=== PATIENT | female | born 1980 | race Caucasian/White ===

== ENCOUNTER 2016-09-27 15:30 | Emergency (ER) | payer MEDICAID ==
[2016-09-27 15:53] VITALS: BP 149/101; PULSE 71; RESP 18; TEMP 98.2
--- NOTE | 2016-09-27 17:06 | ED ---
Back Pain HPI - General Chief Complaint: Back Pain/Injury Stated Complaint: Back Pain Time Seen by Provider: 09/27/16 16:23 Source: patient Limitations: no limitations - History of Present Illness MD Complaint: back pain (Lumbosacral) Onset/Timin -: week(s) Similar Symptoms Previously: Yes Place: home Radiation: none Severity: moderate Severity scale (1-10): 7 Quality: sharp, aching Consistency: constant Improves With: movement Worsens With: immobilization Context: other (Patient states she was going from a standing to a sitting position bending over when she felt her back "pop") Associated Symptoms: denies other symptoms Treatments Prior to Arrival: NSAIDS, acetaminophen - Related Data Home Medications Medication Instructions Recorded Confirmed Acetaminophen [Tylenol Extra 500 - 1,000 mg PO Q8H PRN 09/27/16 09/27/16 Strength] [place] Patch 1 patch TOPICAL DAILY PRN 09/27/16 09/27/16 Ibuprofen [Motrin] 800 mg PO Q6HR PRN 09/27/16 09/27/16 Previous Rx's Medication Instructions Recorded HYDROcodone/APAP 5-325MG [[place] 1 tab PO Q6H PRN #12 tab 09/27/16 5-325] Orphenadrine [Norflex] 100 mg PO Q12H #6 tablet.er 09/27/16 Allergies Allergy/AdvReac Type Severity Reaction Status Date / Time No Known Allergies Allergy Verified 09/27/16 16:15 Review of Systems ROS Statement: Those systems with pertinent positive or pertinent negative responses have been documented in the HPI. ROS Other: All systems not noted in ROS Statement are negative. Past Medical History Past Medical History: No Reported History History of Any Multi-Drug Resistant Organisms: None Reported Past Surgical History: Section, Cholecystectomy, Heart Catheterization Past Psychological History: No Psychological Hx Reported Smoking Status: Never smoker Past Alcohol Use History: None Reported Past Drug Use History: None Reported General Exam Limitations: no limitations General appearance: alert, in no apparent distress Head exam: Present: atraumatic, normocephalic, normal inspection Eye exam: Present: normal appearance ENT exam: Present: mucous membranes moist, normal external ear exam Neck exam: Present: normal inspection, full ROM. Absent: tenderness, lymphadenopathy Respiratory exam: Present: normal lung sounds bilaterally, rhonchi. Absent: respiratory distress, wheezes, rales Cardiovascular Exam: Present: regular rate, normal rhythm, normal heart sounds. Absent: systolic murmur GI/Abdominal exam: Present: soft, normal bowel sounds. Absent: tenderness Extremities exam: Present: normal inspection, full ROM. Absent: tenderness, normal capillary refill, pedal edema, calf tenderness Back exam: Present: normal inspection, full ROM, vertebral tenderness (Lumbar region). Absent: CVA tenderness (R), CVA tenderness (L), muscle spasm, paraspinal tenderness, rash noted Expanded Back exam: Absent: saddle anesthesia Neurological exam: Present: alert, oriented X3, normal gait, other (No focal deficits noted) Psychiatric exam: Present: normal affect, normal mood Skin exam: Present: warm, dry, intact, normal color Course Vital Signs 09/27/16 15:50 Temperature 98.2 F Pulse Rate 71 Respiratory 18 Rate Blood Pressure 149/101 O2 Sat by Pulse 98 Oximetry Medical Decision Making - Medical Decision Making Lumbar sacral back sprain. X-ray with evidence of mild multilevel degenerative disc disease; mild facet arthropathic lower lumbar spine; possible 5 mm gallstone or right renal calculus. - Radiology Data Radiology results: report reviewed X-ray lumbosacral spine: Nonspecific 5 mm density right mid abdomen could represent a gallstone or renal calculus. Gentle levoconvex curvature of the lumbar spine with 5 lumbar type vertebral bodies and preserved alignment. Mild multilevel due to disc disease with disc space narrowing greatest at L5-S1 but also within the lower thoracic spine as well. Mild facet arthropathic the lower lumbar spine. Vertebral body heights are preserved. Impression: 1. Mild multilevel degenerative disc disease. Mild facet arthropathic lower lumbar spine. 2. No vertebral compression collapse or malalignment. Gentle levoconvex curvature which could be positional, due to muscle spasm, or underlying scoliosis. 3. Possible 5 mm gallstone or right renal calculus. Disposition Clinical Impression: Strain of lumbar region Disposition: HOME SELF-CARE Condition: Good Instructions: Acute Low Back Pain (ED) Additional Instructions: Continue Tylenol or Motrin for pain. Continue [place] for moderate or severe pain. Continue Norflex for back spasms twice daily as needed. Follow-up with primary care physician as directed. Follow-up with orthopedic service as needed. Please return to the emergency department with new or worsening symptoms. Prescriptions: HYDROcodone/APAP 5-325MG [[place] 5-325] 1 tab PO Q6H PRN #12 tab PRN Reason: Pain Orphenadrine [Norflex] 100 mg PO Q12H #6 tablet.er Referrals: Sanam Gray MD [Primary Care Provider] - 1-2 days Lamar Kirkland DO [Doctor of Osteopathic Medicine] - 1-2 days Time of Disposition: 17:14
--- NOTE | 2016-09-27 17:09 | XR ---
EXAMINATION TYPE: XR lumbosacral spine min 4V DATE OF EXAM: 09/27/2016 COMPARISON: NONE HISTORY: 36-year-old female with low back pain after twisting injury TECHNIQUE: 5 views FINDINGS: Cholecystectomy clips. Nonspecific 5 mm density right mid abdomen could represent a gallstone or renal calculus. Gentle levoconvex curvature of the lumbar spine with 5 lumbar type vertebral bodies and preserved ali gnment. There is mild multilevel degenerative disc disease with disc space narrowing greatest at L5-S 1 but also within the lower thoracic spine as well. Mild facet arthropathy lower lumbar spine. Verteb ral body heights are preserved. IMPRESSION: 1. Mild multilevel degenerative disc disease. Mild facet arthropathy lower lumbar spine. 2. No vertebral compression collapse or malalignment. However, there is a gentle levoconvex curvature which could be positional, due to muscle spasm, or underlying scoliosis. 3. Possible 5 mm gallstone or right renal calculus.
== END 2016-09-27 17:17 | disposition home or self-care (01) ==
LOC: EC 15:30
DX: S33.9XXA Sprain of unspecified parts of lumbar spine and pelvis, initial encounter (principal); M46.96 Unspecified inflammatory spondylopathy, lumbar region; M43.8X6 Other specified deforming dorsopathies, lumbar region; X50.1XXA Overexertion from prolonged static or awkward postures, initial encounter; Y92.009 Unspecified place in unspecified non-institutional (private) residence as the place of occurrence of the external cause; Y93.89 Activity, other specified
CPT/HCPCS: 72110; 99283

== ENCOUNTER 2016-10-11 15:50 | Emergency (ER) | payer MEDICAID ==
[2016-10-11] MEDS ORDERED: SODIUM CHLORIDE 0.9% 1,000 ML IV STA (17:26)
[2016-10-11] MEDS ORDERED: KETOROLAC 30 MG/ML 1 ML VIAL IVP STA (17:26)
[2016-10-11] MEDS ORDERED: ONDANSETRON 4 MG/2 ML VIAL IVP STA (17:26)
[2016-10-11] MEDS ORDERED: HYDROmorphone 1 MG/ML 1 ML SYRINGE IVP STA (17:27)
[2016-10-11 17:55] LABS: Basophils % (A) 0 %; Eosinophils # (A) 0.1 k/uL (0-0.7); Eosinophils % (A) 1 %; HDW 2.79; Luc # (Auto) 0.13; Luc % (Auto) 1; Lymphocytes # (A) 1.8 k/uL (1.0-4.8); Lymphocytes % (A) 18 %; MCH 25.9 pg (25.0-35.0); MCHC 34.1 g/dL (31.0-37.0); MCV 75.9 fL (80.0-100.0); Mean Platelet Volume 6.7; Microcytosis Slight; Monocytes # (A) 0.6 k/uL (0-1.0); Monocytes % (A) 6 %; Neutrophils % (A) 73 %; RBC 5.01 m/uL (3.80-5.40); WBC 9.6 k/uL (3.8-10.6); WBC (Perox) 9.34
[2016-10-11 18:02] LABS: Appearance,Urine Turbid (Clear); Bilirubin,Urine Negative (Negative); Glucose,Urine (UA) Negative (Negative); Ketones,Urine Trace (Negative); Leukocyte Esterase,Urine Small (Negative); Nitrite,Urine Negative (Negative); Particle Count 15790; Protein,Urine 1+ (Negative); RBC,Urine >182 /hpf (0-5); Specific Gravity,Urine 1.019 (1.001-1.035); UA Billing (MACRO vs. MICRO) MICRO; Urobilinogen,Urine <2.0 mg/dL (<2.0); WBC,Urine 66 /hpf (0-5)
[2016-10-11 18:06] LABS: ALT 43 U/L (9-52); AST 28 U/L (14-36); Alkaline Phosphatase 97 U/L (38-126); Amylase 45 U/L (30-110); Anion Gap 13 mmol/L; Blood Urea Nitrogen 13 mg/dL (7-17); Calcium 9.5 mg/dL (8.4-10.2); Carbon Dioxide 21 mmol/L (22-30); Chloride 107 mmol/L (98-107); Glucose 88 mg/dL (74-99); Non-African American GFR(MDRD) >60 (>60 ml/min/1.73 sqM); Potassium 4.1 mmol/L (3.5-5.1); Sodium 141 mmol/L (137-145); Total Bilirubin 0.6 mg/dL (0.2-1.3); Total Protein 7.3 g/dL (6.3-8.2)
--- NOTE | 2016-10-11 18:08 | ED ---
Abdominal Pain HPI - General Chief Complaint: Abdominal Pain Stated Complaint: Kidney Stone Time Seen by Provider: 10/11/16 17:03 Source: patient, RN notes reviewed, old records reviewed Mode of arrival: ambulatory Limitations: no limitations - History of Present Illness Initial Comments: 36-year-old female presents emergency room chief complaint of right flank pain for the past week. Patient reports she saw Dr. Graves scheduled to have a CAT scan tomorrow. Patient reports that the pain is become increasingly worse tonight and she could not wait to have a CAT scan tomorrow. She reports that the pain is a 10 out of 10 and only over the right flank. She does have history of cholecystectomy. Denies any recent fever or chills. Patient reports her pain radiates from the back towards her groin. She denies any difficulty with urinating but states that she did start her menstrual cycle today. Patient states normal bowel movements as well.Patient denies any recent fever, chills, shortness of breath, chest pain, back pain, abdominal pain, nausea vomiting, numbness or tingling, dysuria or hematuria, constipation or diarrhea, headaches or visual changes, or any other current symptoms - Related Data Home Medications Medication Instructions Recorded Confirmed Acetaminophen [Tylenol Extra 500 - 1,000 mg PO Q8H PRN 09/27/16 10/11/16 Strength] Bengay Patch 1 patch TOPICAL DAILY PRN 09/27/16 10/11/16 Ibuprofen [Motrin] 800 mg PO Q6HR PRN 09/27/16 10/11/16 Previous Rx's Medication Instructions Recorded HYDROcodone/APAP 10-325MG [[place] 1 tab PO Q6H PRN #15 tab 10/11/16 10-325] Ketorolac [Toradol] 10 mg PO Q6HR #15 tab 10/11/16 Ondansetron Odt [Zofran Odt] 4 mg PO Q8HR PRN #15 tab 10/11/16 Tamsulosin [Flomax] 0.4 mg PO DAILY #7 cap 10/11/16 Allergies Allergy/AdvReac Type Severity Reaction Status Date / Time No Known Allergies Allergy Verified 10/11/16 17:21 Review of Systems ROS Statement: Those systems with pertinent positive or pertinent negative responses have been documented in the HPI. ROS Other: All systems not noted in ROS Statement are negative. Past Medical History Past Medical History: No Reported History History of Any Multi-Drug Resistant Organisms: None Reported Past Surgical History: Section, Cholecystectomy, Heart Catheterization Past Psychological History: No Psychological Hx Reported Smoking Status: Never smoker Past Alcohol Use History: None Reported Past Drug Use History: None Reported General Exam - General Exam Comments Initial Comments: 36 year old female in discomfort. Limitations: no limitations General appearance: alert, in no apparent distress Head exam: Present: atraumatic, normocephalic, normal inspection Eye exam: Present: normal appearance, PERRL, EOMI. Absent: scleral icterus, conjunctival injection, periorbital swelling ENT exam: Present: normal exam, mucous membranes moist Neck exam: Present: normal inspection. Absent: tenderness, meningismus, lymphadenopathy Respiratory exam: Present: normal lung sounds bilaterally. Absent: respiratory distress, wheezes, rales, rhonchi, stridor Cardiovascular Exam: Present: regular rate, normal rhythm, normal heart sounds. Absent: systolic murmur, diastolic murmur, rubs, gallop, clicks GI/Abdominal exam: Present: soft, normal bowel sounds. Absent: distended, tenderness, guarding, rebound, rigid Extremities exam: Present: normal inspection, full ROM, normal capillary refill. Absent: tenderness, pedal edema, joint swelling, calf tenderness Back exam: Present: normal inspection, CVA tenderness (R) Neurological exam: Present: alert, oriented X3, CN II-XII intact Psychiatric exam: Present: normal affect, normal mood Skin exam: Present: warm, dry, intact, normal color. Absent: rash Course Vital Signs 10/11/16 10/11/16 15:52 20:06 Temperature 98.0 F 97.1 F L Pulse Rate 100 60 Respiratory 20 18 Rate Blood Pressure 137/93 119/61 O2 Sat by Pulse 98 96 Oximetry Medical Decision Making - Medical Decision Making 36-year-old female presents emergency room chief complaint of right flank pain for the past week. Patient reports she saw Dr. Graves scheduled to have a CAT scan tomorrow. Patient reports that the pain is become increasingly worse tonight and she could not wait to have a CAT scan tomorrow. She reports that the pain is a 10 out of 10 and only over the right flank. She does have history of cholecystectomy. Denies any recent fever or chills. Patient reports her pain radiates from the back towards her groin. She denies any difficulty with urinating but states that she did start her menstrual cycle today. Patient lab work reviewed, no significant abnormalities besides numerous RBC in urinalysis. CT abdomen and pelvis without contrast shows 5mm renal stone. No significant abnormalities besides this. Patient has no obstructive uropathy. Patient informed of these results. Patient will be discharged with flomax, pain medication, nausea medication and toradol. Patient advised to follow up with . Return parameters discussed. - Lab Data Result diagrams: 10/11/16 17:43 10/11/16 17:43 Lab Results 10/11/16 10/11/16 10/11/16 Range/Units 17:43 17:43 17:43 WBC 9.6 (3.8-10.6) k/uL RBC 5.01 (3.80-5.40) m/uL Hgb 13.0 (11.4-16.0) gm/dL Hct 38.0 (34.0-46.0) % MCV 75.9 L (80.0-100.0) fL MCH 25.9 (25.0-35.0) pg MCHC 34.1 (31.0-37.0) g/dL RDW 15.0 (11.5-15.5) % Plt Count 340 (150-450) k/uL Neutrophils % 73 % Lymphocytes % 18 % Monocytes % 6 % Eosinophils % 1 % Basophils % 0 % Neutrophils # 7.0 (1.3-7.7) k/uL Lymphocytes # 1.8 (1.0-4.8) k/uL Monocytes # 0.6 (0-1.0) k/uL Eosinophils # 0.1 (0-0.7) k/uL Basophils # 0.0 (0-0.2) k/uL Microcytosis Slight Sodium 141 (137-145) mmol/L Potassium 4.1 (3.5-5.1) mmol/L Chloride 107 (98-107) mmol/L Carbon Dioxide 21 L (22-30) mmol/L Anion Gap 13 mmol/L BUN 13 (7-17) mg/dL Creatinine 0.70 (0.52-1.04) mg/dL Est GFR (MDRD) Af Amer >60 (>60 ml/min/1.73 sqM) Est GFR (MDRD) Non-Af >60 (>60 ml/min/1.73 sqM) Glucose 88 (74-99) mg/dL Calcium 9.5 (8.4-10.2) mg/dL Total Bilirubin 0.6 (0.2-1.3) mg/dL AST 28 (14-36) U/L ALT 43 (9-52) U/L Alkaline Phosphatase 97 (38-126) U/L Total Protein 7.3 (6.3-8.2) g/dL Albumin 4.3 (3.5-5.0) g/dL Amylase 45 (30-110) U/L Lipase 83 (23-300) U/L Urine Color Dark Brown Urine Appearance Turbid H (Clear) Urine pH 5.0 (5.0-8.0) Ur Specific [place] 1.019 (1.001-1.035) Urine Protein 1+ H (Negative) Urine Glucose (UA) Negative (Negative) Urine Ketones Trace H (Negative) Urine Blood Large H (Negative) Urine Nitrite Negative (Negative) Urine Bilirubin Negative (Negative) Urine Urobilinogen <2.0 (<2.0) mg/dL Ur Leukocyte Esterase Small H (Negative) Urine RBC >182 H (0-5) /hpf Urine WBC 66 H (0-5) /hpf Disposition Clinical Impression: Renal calculus, right Disposition: HOME SELF-CARE Condition: Good Instructions: Kidney Stones (ED) Additional Instructions: Patient advised to follow-up with primary care provider and urologist. Return to the emergency department if any alarming signs or symptoms occur. Rest, remain hydrated. Take the medications as prescribed. Prescriptions: HYDROcodone/APAP 10-325MG [[place] 10-325] 1 tab PO Q6H PRN #15 tab PRN Reason: Pain Ketorolac [Toradol] 10 mg PO Q6HR #15 tab Ondansetron Odt [Zofran Odt] 4 mg PO Q8HR PRN #15 tab PRN Reason: Nausea Tamsulosin [Flomax] 0.4 mg PO DAILY #7 cap Referrals: Ailyn Kilpatrick MD [STAFF PHYSICIAN] - 1-2 days Time of Disposition: 19:25
--- NOTE | 2016-10-11 19:10 | CT ---
EXAMINATION TYPE: CT abdomen pelvis wo con DATE OF EXAM: 10/11/2016 COMPARISON: NONE HISTORY: Right flank pain. CT DLP: 1226.00 mGycm Automated exposure control for dose reduction was used. TECHNIQUE: Helical acquisition of images was performed from the lung bases through the pelvis. FINDINGS: LUNG BASES: No significant abnormality is appreciated. LIVER/GB: No significant abnormality is appreciated. PANCREAS: No significant abnormality is seen. SPLEEN: No significant abnormality is seen. ADRENALS: No significant abnormality is seen. KIDNEYS, URETERS, AND BLADDER: There is a 5 mm nonobstructing right midpole renal calcification poste riorly, and the right lower collecting systems show submillimeter calcifications. However, there is n o hydronephrosis and no hydroureter. No urinary bladder calcifications. FREE AIR: No free air is visualized RETROPERITONEAL ADENOPATHY: None visualized REPRODUCTIVE ORGANS: No significant abnormality is seen PELVIC ADENOPATHY: None visualized. OSSEOUS STRUCTURES: No significant abnormality is seen. BOWEL: No significant abnormality is seen. Limitation of the study: Noncontrast CT has limited sensitivity for focal visceral lesions and for in traluminal pathology. IMPRESSION: 1. NEGATIVE FOR OBSTRUCTIVE UROPATHY. 2. NO ACUTE PROCESS, CT ABDOMEN PELVIS WITHOUT CONTRAST.
[2016-10-11] MEDS ORDERED: ACET/COD 300 MG/30 MG STARTER PACK 6 TAB BTL PO STA (19:36)
[2016-10-11] MEDS ORDERED: TAMSULOSIN 0.4 MG CAP.ER.24H PO STA (19:37)
[2016-10-11] MEDS ORDERED: ONDANSETRON 4 MG ODT STARTER PACK 2 TAB BTL PO STA (19:37)
[2016-10-11 20:07] VITALS: BP 119/61; PULSE 60; RESP 18; TEMP 97.1
== END 2016-10-11 20:06 | disposition home or self-care (01) ==
LOC: EC 15:50
DX: N20.0 Calculus of kidney (principal); R11.0 Nausea; Z90.49 Acquired absence of other specified parts of digestive tract
CPT/HCPCS: 99284; 96374; 96375 ×2; 96361 ×2; 36415; 80053; 82150; 83690; 85025; 81001; 74176; J2405; J1885; J1170; S0119

== ENCOUNTER 2016-10-17 21:06 | Emergency (ER) | payer MEDICAID ==
[2016-10-17 21:42] LABS: Appearance,Urine Clear (Clear); Bacteria,Urine Rare /hpf; Bilirubin,Urine Negative (Negative); Glucose,Urine (UA) Negative (Negative); Ketones,Urine Negative (Negative); Leukocyte Esterase,Urine Large (Negative); Mucus,Urine Rare /hpf; Nitrite,Urine Negative (Negative); PH, Urine 5.5 (5.0-8.0); Particle Count 2869; Protein,Urine Negative (Negative); RBC,Urine 2 /hpf (0-5); Specific Gravity,Urine 1.019 (1.001-1.035); Squamous Epithelial Cell,Urine 1 /hpf (0-4); UA Billing (MACRO vs. MICRO) MICRO; Urobilinogen,Urine <2.0 mg/dL (<2.0); WBC,Urine 9 /hpf (0-5)
[2016-10-17] MEDS ORDERED: predniSONE 50 MG TAB PO STA (21:42)
[2016-10-17] MEDS ORDERED: KETOROLAC 60 MG/2 ML VIAL IM STA (21:42)
--- NOTE | 2016-10-17 21:46 | ED ---
General Adult HPI - General Chief complaint: Abdominal Pain Stated complaint: Poss kidney stones Time Seen by Provider: 10/17/16 21:15 Source: patient, family, RN notes reviewed Mode of arrival: ambulatory Limitations: no limitations - History of Present Illness Initial comments: This is a 36-year-old female who presents to the emergency department complaining that she has some right lower back pain. Patient states she has been previously seen and told she had a stone in her kidney but there was no hydronephrosis or hydroureter. Patient states the pain is continued and today it radiated down the back of her leg to about her mid thigh. Patient states she can make it reoccur or if she tries to lift up her right leg or if she lies flat. Patient states twisting also can increase the pain. Patient states there 's been no recent injury. Patient denies any recent fever chills or cough. Patient denies any abdominal pain patient denies nausea vomiting diarrhea. Patient denies any dysuria hematuria urinary frequency. Patient states she just got done with her menstrual cycle. - Related Data Home Medications Medication Instructions Recorded Confirmed Ibuprofen [Motrin] 800 mg PO Q6HR PRN 09/27/16 10/17/16 Previous Rx's Medication Instructions Recorded HYDROcodone/APAP 10-325MG [[place] 1 tab PO Q6H PRN #15 tab 10/11/16 10-325] Ketorolac [Toradol] 10 mg PO Q6HR #15 tab 10/11/16 Ondansetron Odt [Zofran Odt] 4 mg PO Q8HR PRN #15 tab 10/11/16 Tamsulosin [Flomax] 0.4 mg PO DAILY #7 cap 10/11/16 Cyclobenzaprine [Flexeril] 10 mg PO TID #20 tab 10/17/16 Hydrocodone/Acetaminophen [[place] 1 each PO Q4HR PRN #20 tab 10/17/16 5-325] predniSONE 40 mg PO DAILY #8 tab 10/17/16 Allergies Allergy/AdvReac Type Severity Reaction Status Date / Time No Known Allergies Allergy Verified 10/17/16 21:43 Review of Systems ROS Statement: Those systems with pertinent positive or pertinent negative responses have been documented in the HPI. ROS Other: All systems not noted in ROS Statement are negative. Past Medical History Past Medical History: No Reported History History of Any Multi-Drug Resistant Organisms: None Reported Past Surgical History: Section, Cholecystectomy, Heart Catheterization Past Psychological History: No Psychological Hx Reported Smoking Status: Never smoker Past Alcohol Use History: None Reported Past Drug Use History: None Reported General Exam - General Exam Comments Initial Comments: GENERAL: Patient is well-developed and well-nourished. Patient is nontoxic and well- hydrated and is in mild distress. ENT: Neck is soft and supple. No significant lymphadenopathy is noted. Oropharynx is clear. Moist mucous membranes. Neck has full range of motion without eliciting any pain. EYES: The sclera were anicteric and conjunctiva were pink and moist. Extraocular movements were intact and pupils were equal round and reactive to light. Eyelids were unremarkable. PULMONARY: Unlabored respirations. Good breath sounds bilaterally. No audible rales rhonchi or wheezing was noted. CARDIOVASCULAR: There is a regular rate and rhythm without any murmurs gallops or rubs. ABDOMEN: Soft and nontender with normal bowel sounds. No palpable organomegaly was noted. There is no palpable pulsatile mass. SKIN: Skin is clear with no lesions or rashes and otherwise unremarkable. NEUROLOGIC: Patient is alert and oriented x3. Cranial nerves II through XII are grossly intact. Motor and sensory are also intact. Normal speech, volume and content. Symmetrical smile. Patient had straight leg test on and was positive on the right at about 30. Left was normal MUSCULOSKELETAL: Normal extremities with adequate strength and full range of motion. LYMPHATICS: No significant lymphadenopathy is noted PSYCHIATRIC: Normal psychiatric evaluation. Limitations: no limitations Course Vital Signs 10/17/16 21:11 Temperature 98 F Pulse Rate 74 Respiratory 18 Rate Blood Pressure 151/92 O2 Sat by Pulse 99 Oximetry Medical Decision Making - Lab Data Lab Results 10/17/16 Range/Units 21:25 Urine Color Yellow Urine Appearance Clear (Clear) Urine pH 5.5 (5.0-8.0) Ur Specific [place] 1.019 (1.001-1.035) Urine Protein Negative (Negative) Urine Glucose (UA) Negative (Negative) Urine Ketones Negative (Negative) Urine Blood Negative (Negative) Urine Nitrite Negative (Negative) Urine Bilirubin Negative (Negative) Urine Urobilinogen <2.0 (<2.0) mg/dL Ur Leukocyte Esterase Large H (Negative) Urine RBC 2 (0-5) /hpf Urine WBC 9 H (0-5) /hpf Ur Squamous Epith Cells 1 (0-4) /hpf Urine Bacteria Rare H (None) /hpf Urine Mucus Rare H (None) /hpf Disposition Clinical Impression: Strain of lumbar region, Sciatica Disposition: HOME SELF-CARE Instructions: Sciatica (ED) Prescriptions: Cyclobenzaprine [Flexeril] 10 mg PO TID #20 tab Hydrocodone/Acetaminophen [[place] 5-325] 1 each PO Q4HR PRN #20 tab PRN Reason: Pain predniSONE 40 mg PO DAILY #8 tab Referrals: None,Stated [Primary Care Provider] - 1-2 days Time of Disposition: 22:06
[2016-10-17] MEDS ORDERED: ONDANSETRON 4 MG/2 ML VIAL IVP STA (22:05)
[2016-10-17 22:27] VITALS: BP 138/72; PULSE 72; RESP 16; TEMP 98.3
[2016-10-17] MEDS ORDERED: ONDANSETRON ODT 4 MG TAB PO STA (22:27)
== END 2016-10-17 22:35 | disposition home or self-care (01) ==
LOC: EC 21:06
DX: S39.012A Strain of muscle, fascia and tendon of lower back, initial encounter (principal); R10.9 Unspecified abdominal pain; Z90.49 Acquired absence of other specified parts of digestive tract; X50.1XXA Overexertion from prolonged static or awkward postures, initial encounter
CPT/HCPCS: 81001; 87086; 99284; 96372; J1885; J7512

== ENCOUNTER → 2016-11-12 | Outpatient (CLI) | payer MEDICAID ==
[2016-11-12 10:28] LABS: Basophils % (A) 0 %; CH 25.3; CHCM 31.7; Eosinophils # (A) 0.1 k/uL (0-0.7); Eosinophils % (A) 2 %; HCT 39.3 % (34.0-46.0); HDW 2.69; HGB 12.6 gm/dL (11.4-16.0); Hypochromasia Slight; Luc # (Auto) 0.21; Luc % (Auto) 3; Lymphocytes # (A) 1.8 k/uL (1.0-4.8); Lymphocytes % (A) 21 %; MCH 25.7 pg (25.0-35.0); MCHC 32.1 g/dL (31.0-37.0); Mean Platelet Volume 6.4; Monocytes # (A) 0.4 k/uL (0-1.0); Monocytes % (A) 5 %; Neutrophils # (A) 5.9 k/uL (1.3-7.7); Neutrophils % (A) 70 %; RBC 4.91 m/uL (3.80-5.40); RDW 15.6 % (11.5-15.5); WBC 8.5 k/uL (3.8-10.6); WBC (Perox) 8.88
[2016-11-12 11:00] LABS: Anion Gap 12 mmol/L; Blood Urea Nitrogen 15 mg/dL (7-17); Carbon Dioxide 23 mmol/L (22-30); Chloride 105 mmol/L (98-107); Non-African American GFR(MDRD) >60 (>60 ml/min/1.73 sqM); Potassium 4.4 mmol/L (3.5-5.1); Sodium 140 mmol/L (137-145)
== END ==
LOC: LABPAT 09:58
PROVIDERS: ATTEND Urology
DX: N20.0 Calculus of kidney (principal)
CPT/HCPCS: 80051; 82565; 84520; 85025

== ENCOUNTER 2016-11-19 12:08 | Day surgery (SDC) | payer MEDICAID ==
[2016-11-14 09:16] VITALS: BMI 53.2
[~2016-11-19 12:08] MED LIST: DEXAMETHASONE SOD PHOSPHATE 10 MG/ML 1 ML VIAL IV ONE; HYDROmorphone 1 MG/ML 1 ML SYRINGE IVP PRN; LACTATED RINGERS 1,000 ML IV SCH; LIDOCAINE 1% 20 ML VIAL (10MG/ML) FOR IV START INTRADERMA PRN; Pre Op ABX Message 1 EACH MISC MISCELLANE ONE; SCOPOLAMINE 1.5MG/72HR PATCH TRANSDERM ONE
[2016-11-19 13:13] VITALS: RESP 16; TEMP 97.7
--- NOTE | 2016-11-19 13:55 | XR ---
Abdomen HISTORY: Kidney stones Frontal view of the abdomen submitted on 2 images and correlated to previous exam 10/11/2016 CT abdome n pelvis Right-sided kidney stone at the midpole level measures approximately 7 mm on plain film. Calcificatio n within the left pelvis likely a phlebolith. Surgical clips present in the right upper quadrant. The re is no pneumoperitoneum. IMPRESSION: Right nephrolithiasis.
[2016-11-19] MEDS ORDERED: fentaNYL (PF) 50 MCG/ML 2 ML AMP ONE (15:05)
[2016-11-19] MEDS ORDERED: KETAMINE 10 MG/ML 20 ML VIAL ONE (15:05)
[2016-11-19] MEDS ORDERED: MIDAZOLAM 2 MG/2 ML VIAL ONE (15:05)
[2016-11-19] MEDS ORDERED: PROPOFOL 10 MG/ML 20 ML VIAL IV ONE (15:05)
--- NOTE | 2016-11-19 16:11 | P.OP ---
Date of Procedure: 11/19/16 Preoperative Diagnosis: Right renal calculus Postoperative Diagnosis: Right renal calculus Procedure(s) Performed: Extracorporal shockwave lithotripsy Implants: Anesthesia: MAC Surgeon: Judah Gary Indications for Procedure: The patient is a 36 year old obese female with intermittent right flank pain and a 3x6 mm calculus in the mid-lower pole of the right kidney. It is unclear whether the stone is the source of the patient's pain. Treatment options were reviewed with Dr Brunson and ESWL has been chosen. Operative Findings: Description of Procedure: The patient was taken to the operating suite where intravenous sedation was given. Patient was placed in the supine position on the fluoroscopy table. The calculus in the lower pole of the right kidney was localized using biplanar fluoroscopy. Lithotripsy was performed using the Dornier compact delta unit. Patient received 2500 shocks at level 5 at a rate of 60 shocks per minute. There appeared to be good fragmentation of the calculus. Anesthesia was reversed and the patient was returned to the recovery room awake and in satisfactory condition.
[2016-11-19 16:36] VITALS: PULSE 69
[2016-11-19 17:00] VITALS: BP 140/79
== END 2016-11-19 17:10 | disposition home or self-care (01) ==
LOC: ORWHC2ENDO 12:08
PROVIDERS: ATTEND Urology
DX: N20.0 Calculus of kidney (principal); E66.3 Overweight; Z68.43 Body mass index [BMI] 50.0-59.9, adult
CPT/HCPCS: 81025; 74000; 50590; J2250; J3010; J2704

== ENCOUNTER → 2016-11-23 | Outpatient (CLI) | payer MEDICAID ==
--- NOTE | 2016-11-23 09:51 | XR ---
EXAMINATION TYPE: XR abdomen 1V DATE OF EXAM: 11/23/2016 COMPARISON: 11/19/2016 HISTORY: Post lithotripsy TECHNIQUE: One view abdominal series FINDINGS: The osseous structures are intact. The bowel gas pattern is nonspecific. Calcification pelvis likely is vascular. Sclerosis of the right SI joint compatible sacroiliitis. There is fragmentation of the calculus on the right which previously measured 7 mm. Now measures appr oximately 2 mm. Curvature of the spine with hypertrophic changes noted. IMPRESSION: 1. Previously noted calculus now measures approximately 2 mm markedly reduced in size
== END ==
LOC: RADXRMAIN 08:54
PROVIDERS: ATTEND Urology
DX: N20.0 Calculus of kidney (principal)
CPT/HCPCS: 74000

== ENCOUNTER 2018-01-20 14:36 | Emergency (ER) | payer MEDICAID ==
[2018-01-20 14:42] VITALS: RESP 18
[2018-01-20] MEDS ORDERED: SODIUM CHLORIDE 0.9% 1,000 ML IV STA (14:52)
[2018-01-20] MEDS ORDERED: MORPHINE SULFATE 4 MG/ML SYRINGE IV STA (14:52)
[2018-01-20] MEDS ORDERED: ONDANSETRON 4 MG/2 ML VIAL IVP STA (14:52)
--- NOTE | 2018-01-20 15:23 | ED ---
General Adult HPI - General Chief complaint: Abdominal Pain Stated complaint: Abdominal pain Time Seen by Provider: 01/20/18 14:43 Source: patient, RN notes reviewed Mode of arrival: ambulatory Limitations: no limitations - History of Present Illness Initial comments: Patient 37-year-old female presented to the emergency room today with a chief complaint of abdominal pain off and on over the last several months. She does not that last night she was watching TV and the pain increased. She states located in epigastric area. Patient does work here in the hospital did talk to Dr. Dinh who thought could be a possible hernia and recommended coming to the emergency room to have a CT of the abdomen performed. She does admit the pain seems to be worse at times with movement. She denies any other complaints or symptoms. Patient denies any recent fever, chills, shortness of breath, chest pain, back pain, nausea or vomiting, numbness or tingling, dysuria or hematuria, constipation or diarrhea, headaches or visual changes, or any other complaints. - Related Data Home Medications Medication Instructions Recorded Confirmed Acetaminophen Tab [Tylenol Tab] 1,000 mg PO Q6HR 01/20/18 01/20/18 Allergies Allergy/AdvReac Type Severity Reaction Status Date / Time No Known Allergies Allergy Verified 01/20/18 14:53 Review of Systems ROS Statement: Those systems with pertinent positive or pertinent negative responses have been documented in the HPI. ROS Other: All systems not noted in ROS Statement are negative. Past Medical History Past Medical History: No Reported History History of Any Multi-Drug Resistant Organisms: None Reported Past Surgical History: Section, Cholecystectomy, Heart Catheterization Past Psychological History: No Psychological Hx Reported Smoking Status: Never smoker Past Alcohol Use History: None Reported Past Drug Use History: None Reported General Exam - General Exam Comments Initial Comments: General: The patient is awake and alert, in no distress, and does not appear acutely ill. Eye: There is normal conjunctiva bilaterally. No signs of icterus. Ears, nose, mouth and throat: There are moist mucous membranes and no oral lesions. Neck: The neck is supple, there is no tenderness or JVD. Cardiovascular: There is a regular rate and rhythm. No murmur, rub or gallop is appreciated. Respiratory: Lungs are clear to auscultation, respirations are non-labored, breath sounds are equal. No wheezes, stridor, rales, or rhonchi. Gastrointestinal: Soft on palpation. Mild tenderness epigastric. No rebound, guarding or CVA tenderness. Musculoskeletal: Normal ROM, no tenderness. Sensation intact. Strength 5/5. Pulses equal bilaterally 2+. Neurological: A&O x 3. CN II-XII intact, There are no obvious motor or sensory deficits. Coordination appears grossly intact. Speech is normal. Skin: Skin is warm and dry and no rashes or lesions are noted. Psychiatric: Cooperative, appropriate mood & affect, normal judgment. Limitations: no limitations Course Vital Signs 01/20/18 14:40 Temperature 98.1 F Pulse Rate 99 Respiratory 18 Rate Blood Pressure 146/101 O2 Sat by Pulse 99 Oximetry EKG Findings - EKG Comments: EKG Findings:: EKG performed at 1547: Shows normal sinus rhythm. MA interval is 146. QRS 70. QT/QTc is 344/418. No acute ST change Medical Decision Making - Medical Decision Making Patient reexamined at the Center no signs of distress. She is resting completely. Patient's labs been reviewed. CT of the abdomen pelvis does show ileus and a small umbilical hernia. At this time patient will be discharged to follow-up with her surgeon. She is advised to return here to the emergency room symptoms increase worsen or for new concerns. - Lab Data Result diagrams: 01/20/18 15:46 01/20/18 15:46 Lab Results 01/20/18 01/20/18 01/20/18 Range/Units 15:46 15:46 15:46 WBC 11.2 H (3.8-10.6) k/uL RBC 5.30 (3.80-5.40) m/uL Hgb 12.7 (11.4-16.0) gm/dL Hct 41.3 (34.0-46.0) % MCV 78.0 L (80.0-100.0) fL MCH 23.9 L (25.0-35.0) pg MCHC 30.7 L (31.0-37.0) g/dL RDW 15.6 H (11.5-15.5) % Plt Count 352 (150-450) k/uL Neutrophils % 82 % Lymphocytes % 10 % Monocytes % 5 % Eosinophils % 1 % Basophils % 0 % Neutrophils # 9.2 H (1.3-7.7) k/uL Lymphocytes # 1.1 (1.0-4.8) k/uL Monocytes # 0.6 (0-1.0) k/uL Eosinophils # 0.1 (0-0.7) k/uL Basophils # 0.0 (0-0.2) k/uL Hypochromasia Slight Microcytosis Slight PT 10.0 (9.0-12.0) sec INR 1.0 (<1.2) APTT 23.8 (22.0-30.0) sec Sodium 138 (137-145) mmol/L Potassium 4.3 (3.5-5.1) mmol/L Chloride 108 H (98-107) mmol/L Carbon Dioxide 21 L (22-30) mmol/L Anion Gap 9 mmol/L BUN 12 (7-17) mg/dL Creatinine 0.71 (0.52-1.04) mg/dL Est GFR (CKD-EPI)AfAm >90 (>60 ml/min/1.73 sqM) Est GFR (CKD-EPI)NonAf >90 (>60 ml/min/1.73 sqM) Glucose 102 H (74-99) mg/dL Calcium 9.3 (8.4-10.2) mg/dL Total Bilirubin 0.3 (0.2-1.3) mg/dL AST 25 (14-36) U/L ALT 30 (9-52) U/L Alkaline Phosphatase 100 (38-126) U/L Total Creatine Kinase (30-135) U/L CK-MB (CK-2) (0.0-2.4) ng/mL CK-MB (CK-2) Rel Index Troponin I (0.000-0.034) ng/mL Total Protein 7.1 (6.3-8.2) g/dL Albumin 3.9 (3.5-5.0) g/dL Amylase 44 (30-110) U/L Lipase 67 (23-300) U/L Urine Color Urine Appearance (Clear) Urine pH (5.0-8.0) Ur Specific [place] (1.001-1.035) Urine Protein (Negative) Urine Glucose (UA) (Negative) Urine Ketones (Negative) Urine Blood (Negative) Urine Nitrite (Negative) Urine Bilirubin (Negative) Urine Urobilinogen (<2.0) mg/dL Ur Leukocyte Esterase (Negative) Urine WBC (0-5) /hpf Ur Squamous Epith Cells (0-4) /hpf Calcium Oxalate Crystal (None) /hpf Amorphous Sediment (None) /hpf Urine Bacteria (None) /hpf Hyaline Casts (0-2) /lpf Urine Mucus (None) /hpf Urine HCG, Qual (Not Detectd) 01/20/18 01/20/18 01/20/18 Range/Units 15:46 15:46 15:46 WBC (3.8-10.6) k/uL RBC (3.80-5.40) m/uL Hgb (11.4-16.0) gm/dL Hct (34.0-46.0) % MCV (80.0-100.0) fL MCH (25.0-35.0) pg MCHC (31.0-37.0) g/dL RDW (11.5-15.5) % Plt Count (150-450) k/uL Neutrophils % % Lymphocytes % % Monocytes % % Eosinophils % % Basophils % % Neutrophils # (1.3-7.7) k/uL Lymphocytes # (1.0-4.8) k/uL Monocytes # (0-1.0) k/uL Eosinophils # (0-0.7) k/uL Basophils # (0-0.2) k/uL Hypochromasia Microcytosis PT (9.0-12.0) sec INR (<1.2) APTT (22.0-30.0) sec Sodium (137-145) mmol/L Potassium (3.5-5.1) mmol/L Chloride (98-107) mmol/L Carbon Dioxide (22-30) mmol/L Anion Gap mmol/L BUN (7-17) mg/dL Creatinine (0.52-1.04) mg/dL Est GFR (CKD-EPI)AfAm (>60 ml/min/1.73 sqM) Est GFR (CKD-EPI)NonAf (>60 ml/min/1.73 sqM) Glucose (74-99) mg/dL Calcium (8.4-10.2) mg/dL Total Bilirubin (0.2-1.3) mg/dL AST (14-36) U/L ALT (9-52) U/L Alkaline Phosphatase (38-126) U/L Total Creatine Kinase 196 H (30-135) U/L CK-MB (CK-2) 1.8 (0.0-2.4) ng/mL CK-MB (CK-2) Rel Index 0.9 Troponin I <0.012 (0.000-0.034) ng/mL Total Protein (6.3-8.2) g/dL Albumin (3.5-5.0) g/dL Amylase (30-110) U/L Lipase (23-300) U/L Urine Color Yellow Urine Appearance Cloudy H (Clear) Urine pH 5.5 (5.0-8.0) Ur Specific [place] 1.031 (1.001-1.035) Urine Protein Trace H (Negative) Urine Glucose (UA) Negative (Negative) Urine Ketones Negative (Negative) Urine Blood Negative (Negative) Urine Nitrite Negative (Negative) Urine Bilirubin Negative (Negative) Urine Urobilinogen 2.0 (<2.0) mg/dL Ur Leukocyte Esterase Negative (Negative) Urine WBC 3 (0-5) /hpf Ur Squamous Epith Cells 2 (0-4) /hpf Calcium Oxalate Crystal Moderate H (None) /hpf Amorphous Sediment Rare H (None) /hpf Urine Bacteria Occasional H (None) /hpf Hyaline Casts 4 H (0-2) /lpf Urine Mucus Moderate H (None) /hpf Urine HCG, Qual Not Detected (Not Detectd) Disposition Clinical Impression: Ileus, Umbilical hernia Disposition: HOME SELF-CARE Condition: Good Instructions: Abdominal Pain (ED) Additional Instructions: Please use medication as discussed. Please follow-up with surgeon/family doctor in the next 2 days of symptoms have not improved. Please return to emergency room if the symptoms increase or worsen or for any other concerns. Is patient prescribed a controlled substance at d/c from ED?: No Referrals: Sanam Gray MD [Primary Care Provider] - 1-2 days Eli Dinh MD [STAFF PHYSICIAN] - 1-2 days
[2018-01-20 16:23] LABS: Basophils % (A) 0 %; Eosinophils # (A) 0.1 k/uL (0-0.7); Eosinophils % (A) 1 %; HCT 41.3 % (34.0-46.0); HGB 12.7 gm/dL (11.4-16.0); Hypochromasia Slight; Lymphocytes # (A) 1.1 k/uL (1.0-4.8); Lymphocytes % (A) 10 %; MCH 23.9 pg (25.0-35.0); MCHC 30.7 g/dL (31.0-37.0); Mean Platelet Volume 6.5; Microcytosis Slight; Monocytes # (A) 0.6 k/uL (0-1.0); Monocytes % (A) 5 %; Neutrophils # (A) 9.2 k/uL (1.3-7.7); Neutrophils % (A) 82 %; Platelet Count 352 k/uL (150-450); RDW 15.6 % (11.5-15.5); WBC 11.2 k/uL (3.8-10.6)
[2018-01-20 16:37] LABS: Partial Thromboplastin Time 23.8 sec (22.0-30.0)
[2018-01-20 16:38] LABS: Amorphous Sediment,Urine Rare /hpf; Appearance,Urine Cloudy (Clear); Bacteria,Urine Occasional /hpf; Bilirubin,Urine Negative (Negative); Blood,Urine Negative (Negative); Calcium Oxalate Crystals,Urine Moderate /hpf; Color,Urine Yellow; Glucose,Urine (UA) Negative (Negative); Hyaline Casts,Urine 4 /lpf (0-2); Ketones,Urine Negative (Negative); Leukocyte Esterase,Urine Negative (Negative); Mucus,Urine Moderate /hpf; Nitrite,Urine Negative (Negative); PH, Urine 5.5 (5.0-8.0); Protein,Urine Trace (Negative); Specific Gravity,Urine 1.031 (1.001-1.035); Squamous Epithelial Cell,Urine 2 /hpf (0-4)
[2018-01-20 16:42] LABS: Creatine Kinase 196 U/L (30-135)
[2018-01-20 16:45] LABS: ALT 30 U/L (9-52); AST 25 U/L (14-36); Albumin 3.9 g/dL (3.5-5.0); Alkaline Phosphatase 100 U/L (38-126); Amylase 44 U/L (30-110); Anion Gap 9 mmol/L; Blood Urea Nitrogen 12 mg/dL (7-17); Calcium 9.3 mg/dL (8.4-10.2); Carbon Dioxide 21 mmol/L (22-30); Chloride 108 mmol/L (98-107); Glucose 102 mg/dL (74-99); Lipase 67 U/L (23-300); Potassium 4.3 mmol/L (3.5-5.1); Sodium 138 mmol/L (137-145); Total Bilirubin 0.3 mg/dL (0.2-1.3); Total Protein 7.1 g/dL (6.3-8.2)
[2018-01-20 16:52] LABS: Creatine Kinase MB 1.8 ng/mL (0.0-2.4)
[2018-01-20 16:56] LABS: Troponin I <0.012 ng/mL (0.000-0.034)
--- NOTE | 2018-01-20 17:22 | CT ---
EXAMINATION TYPE: CT abdomen pelvis w con DATE OF EXAM: 01/20/2018 COMPARISON: 10/11/2016 HISTORY: Abdominal pain with nausea. CT DLP: 3163.9 mGycm Automated exposure control for dose reduction was used. TECHNIQUE: Helical acquisition of images was performed from the lung bases through the pelvis. CONTRAST: Performed without Oral Contrast and with IV Contrast, patient injected with 100 mL of Isovue 300. FINDINGS: Lung bases are clear. There is no pleural effusion. Heart size is normal. Liver spleen pancreas appea r normal. There are clips from cholecystectomy. Bile ducts are not dilated. There is no adrenal mass. Kidneys show satisfactory contrast opacification. There is no hydronephrosi s. There is no retroperitoneal adenopathy. There is no mesenteric adenopathy. There are some mildly d istended loops of fluid-filled small bowel. There is small umbilical hernia that contains fat. I see no intestinal wall thickening. There is no sign of free air. There is no ascites. Bladder distends sm oothly. There is no evidence of a pelvic mass. There is no inguinal hernia. Bony structures are intac t. IMPRESSION: THERE ARE SOME MILDLY DISTENDED SMALL BOWEL LOOPS WITH FLUID THAT COULD RELATE TO ILEUS. THESE MEASUR E UP TO 3.2 CM. THIS APPEARS NEW COMPARED TO OLD EXAM. SMALL UMBILICAL HERNIA.
[2018-01-20 17:39] VITALS: BP 121/64; PULSE 80; TEMP 98.9
== END 2018-01-20 17:53 | disposition home or self-care (01) ==
LOC: EC 14:36
DX: K42.9 Umbilical hernia without obstruction or gangrene (principal); K56.7 Ileus, unspecified; Z90.49 Acquired absence of other specified parts of digestive tract; Z98.890 Other specified postprocedural states; Z79.899 Other long term (current) drug therapy
CPT/HCPCS: 99284; 96374; 96375; 96361; 36415; 93005; 80053; 82150; 82550; 82553; 83690; 84484; 85025; 85610; 85730; 81001; 81025; 74177; J2270; J2405; Q9967

== ENCOUNTER 2018-03-21 21:06 | Emergency (ER) | payer MEDICAID ==
[2018-03-21 21:18] VITALS: BP 142/91; PULSE 86; RESP 16; TEMP 98.2
--- NOTE | 2018-03-21 22:18 | ED ---
URI HPI - General Chief Complaint: Upper Respiratory Infection Stated Complaint: Poss viral infection Source: patient Mode of arrival: ambulatory Limitations: no limitations - History of Present Illness Initial Comments: This is a 37-year-old female with past medical history of incisional hernia presenting today for chief complaint of sinus pressure. Patient states that the past 2 days she's been experiencing sinus pressure and nasal congestion. Patient states she is a surgery scheduled for a incisional hernia repair by Dr. Dinh and was told by her surgeon to present for evaluation for viral swab and further evaluation. Patient denies any fever, chills, night sweats, cough, sputum, shortness of breath, sore throat, ear pain, difficulty breathing or swallowing, headache, visual changes, body aches, malaise, fatigue , nausea, vomiting or diarrhea. Patient denies any rashes. Remainder of ROS is negative, upon arrival patient appears well. No signs of acute distress. Assessment upon arrival appear stable, blood pressure elevation noted. Patient is afebrile. Patient denies taking medications prior to arrival to emergency department. - Related Data Previous Rx's Medication Instructions Recorded Amoxicillin 500 mg PO Q8H 5 Days #15 capsule 03/21/18 Sulfamethox-Tmp 800-160Mg [Bactrim 1 tab PO Q12HR 5 Days #10 tab 03/21/18 DS 800-160 mg] Allergies Allergy/AdvReac Type Severity Reaction Status Date / Time No Known Allergies Allergy Verified 03/21/18 21:18 Review of Systems ROS Statement: Those systems with pertinent positive or pertinent negative responses have been documented in the HPI. ROS Other: All systems not noted in ROS Statement are negative. Constitutional: Denies: fever, chills, night sweats Eyes: Denies: eye pain ENT: Reports: congestion, other (And his pressure). Denies: ear pain, throat pain Respiratory: Denies: cough, dyspnea, wheezes, hemoptysis Cardiovascular: Denies: chest pain, palpitations, dyspnea on exertion, orthopnea , edema Endocrine: Denies: fatigue, other Gastrointestinal: Denies: abdominal pain, nausea, vomiting, diarrhea, constipation, hematemesis, melena Genitourinary: Denies: urgency, dysuria, frequency, hematuria Musculoskeletal: Denies: back pain Skin: Denies: rash, lesions Neurological: Denies: headache, weakness, numbness, paresthesias, confusion, abnormal gait Past Medical History Past Medical History: No Reported History Additional Past Medical History / Comment(s): varicose veins, hx kidney stones, hx of chest pain in age 20's -had heart cath that was clear and found to be from stress/anxiety, has sinus symptoms History of Any Multi-Drug Resistant Organisms: None Reported Past Surgical History: Section, Cholecystectomy, Heart Catheterization Additional Past Surgical History / Comment(s): lithotripsy, Past Anesthesia/Blood Transfusion Reactions: No Reported Reaction Past Psychological History: No Psychological Hx Reported Smoking Status: Never smoker - Past Family History Mother Family Medical History: Cancer General Exam - General Exam Comments Initial Comments: General: The patient is awake and alert, in no distress, and does not appear acutely ill. Eye: Positive inspection of the orbits there is no septal she swelling. +3 mm pupils are equal, round and reactive to light, extra-ocular movements are intact. No nystagmus. There is normal conjunctiva bilaterally. No signs of icterus. Ears, nose, mouth and throat: There are moist mucous membranes and no oral lesions. Oropharynx nonerythematous there is no tonsillar enlargement or exudates or lesions. Uvula is midline. There is no postnasal drip. Clear rhinorrhea the nares. No cough audible exam. No oral lesions. Tympanic membranes are within normal limits bilaterally there is no erythema, effusions, retractions or bulging. No pain to palpation of the mastoid. No abnormal findings of the external auditory canal no erythema or edema. Patient is tender to palpation of the maxillary sinuses bilaterally. There is no tenderness to palpation of the frontal or ethmoid sinuses. Neck: The neck is supple, there is no tenderness or JVD. No anterior cervical lymphadenopathy Cardiovascular: There is a regular rate and rhythm. No murmur, rub or gallop is appreciated. Respiratory: Lungs are clear to auscultation, respirations are non-labored, breath sounds are equal. No wheezes, stridor, rales, or rhonchi. Gastrointestinal: Soft, non-distended, non-tender abdomen without masses or organomegaly noted. There is no rebound or guarding present. No CVA tenderness. Bowel sounds are unremarkable. Musculoskeletal: Normal ROM, no tenderness. Strength 5/5. Sensation intact. Pulses equal bilaterally 2+. Neurological: A&O x 3. CN II-XII intact, There are no obvious motor or sensory deficits. Coordination appears grossly intact. Speech is normal. Skin: Skin is warm and dry and no rashes or lesions are noted. Psychiatric: Cooperative, appropriate mood & affect, normal judgment. Limitations: no limitations Course Vital Signs 03/21/18 21:16 Temperature 98.2 F Pulse Rate 86 Respiratory 16 Rate Blood Pressure 142/91 O2 Sat by Pulse 99 Oximetry Medical Decision Making - Medical Decision Making Influenza and rapid strep testing negative. Patient is afebrile, and well- appearing. I discussed the case with Dr. Dinh, who stated she would like antibiotic treatment. Patient be started on amoxicillin 3 times a day for the next 5 days. This I do feel patient is stable for discharge. Patient is discharged in stable condition with primary care follow-up in the next 2-5 days. Patient is agreeable plan. Return parameters discussed at length, patient verbalizes understanding. Case discussed with Dr. Meo prior to discharge. He agreed with impression and plan. Pt placed on amoxicillin, pt did not take home bactrim (error). - Lab Data Lab Results 03/21/18 03/21/18 Range/Units 22:12 22:12 Influenza Type A RNA Not Detected (Not Detectd) Influenza Type B (PCR) Not Detected (Not Detectd) Group A Strep Rapid Negative (Negative) Disposition Clinical Impression: Sinusitis Disposition: HOME SELF-CARE Condition: Good Instructions: Sinusitis (ED) Additional Instructions: Please use medication as discussed. Please follow-up with family doctor in the next 2-3 days. Please return to emergency room if the symptoms increase or worsen or for any other concerns. Prescriptions: Amoxicillin 500 mg PO Q8H 5 Days #15 capsule Sulfamethox-Tmp 800-160Mg [Bactrim DS 800-160 mg] 1 tab PO Q12HR 5 Days #10 tab Is patient prescribed a controlled substance at d/c from ED?: No Referrals: Sanam Gray MD [Primary Care Provider] - 1-2 days Time of Disposition: 22:42
[2018-03-21] MEDS: SULFAMETH-TMP DS STARTER PACK 2 TAB BTL PO STA ×2 (22:55→22:57)
== END 2018-03-21 23:00 | disposition home or self-care (01) ==
LOC: EC 21:06
DX: J32.9 Chronic sinusitis, unspecified (principal); R03.0 Elevated blood-pressure reading, without diagnosis of hypertension; Z86.79 Personal history of other diseases of the circulatory system; Z95.818 Presence of other cardiac implants and grafts
CPT/HCPCS: 87081; 87430; 87502; 99283

== ENCOUNTER → 2018-03-26 | Outpatient (CLI) | payer MEDICAID ==
[2018-03-26 11:11] LABS: Basophils % (A) 0 %; Eosinophils # (A) 0.3 k/uL (0-0.7); Eosinophils % (A) 3 %; HCT 39.1 % (34.0-46.0); HGB 12.5 gm/dL (11.4-16.0); Hypochromasia Slight; Lymphocytes # (A) 1.5 k/uL (1.0-4.8); Lymphocytes % (A) 16 %; MCH 24.8 pg (25.0-35.0); MCHC 31.8 g/dL (31.0-37.0); Mean Platelet Volume 7.5; Microcytosis Slight; Monocytes # (A) 0.7 k/uL (0-1.0); Monocytes % (A) 7 %; Neutrophils # (A) 7.1 k/uL (1.3-7.7); Neutrophils % (A) 73 %; Platelet Count 305 k/uL (150-450); RBC 5.02 m/uL (3.80-5.40); WBC 9.7 k/uL (3.8-10.6)
== END ==
LOC: LABPAT 10:06
PROVIDERS: ATTEND Anesthesiology
DX: Z01.812 Encounter for preprocedural laboratory examination (principal)
CPT/HCPCS: 36415; 85025

== ENCOUNTER 2018-03-27 08:46 | Day surgery (SDC) | payer MEDICAID ==
[2018-03-20 12:28] VITALS: BMI 53.8
[~2018-03-27 08:46] MED LIST changes: -DEXAMETHASONE SOD PHOSPHATE 10 MG/ML 1 ML VIAL IV ONE; +HEPARIN SODIUM,PORCINE 5,000 UNIT/ML 1 ML VIAL SQ ONE; -HYDROmorphone 1 MG/ML 1 ML SYRINGE IVP PRN; -LACTATED RINGERS 1,000 ML IV SCH; -LIDOCAINE 1% 20 ML VIAL (10MG/ML) FOR IV START INTRADERMA PRN; -Pre Op ABX Message 1 EACH MISC MISCELLANE ONE; -SCOPOLAMINE 1.5MG/72HR PATCH TRANSDERM ONE
[2018-03-27] MEDS ORDERED: LIDOCAINE 1% 20 ML VIAL (10MG/ML) FOR IV START SQ ONE (09:15)
[2018-03-27] MEDS ORDERED: ACETAMINOPHEN IV (For NPO) 1,000 MG in EMPTY BAG 1 BAG IVPB ONE (09:32)
--- NOTE | 2018-03-27 09:34 | P.GSHP ---
History of Present Illness H&P Date: 03/27/18 CHIEF COMPLAINT:Ventral hernia. HISTORY OF PRESENT ILLNESS: The patient is a 37-year-old female who presents with a history of swelling along the umbilicus Findings were consistent with possible ventral hernia. Now she presents for further evaluation and management. PAST MEDICAL HISTORY: Please see list. PAST SURGICAL HISTORY: Please see list. MEDICATIONS: Please see list. ALLERGIES: Please see list. SOCIAL HISTORY: No illicit drug use FAMILY HISTORY: No reports of Crohn disease or ulcerative colitis. REVIEW OF ORGAN SYSTEMS: CONSTITUTIONAL: No reports of fevers or chills. GI: Denies any blood in stools or constipation. PHYSICAL EXAM: VITAL SIGNS: Stable GENERAL: Well-developed pleasant female in no acute distress. HEENT: No scleral icterus. Extraocular movements grossly intact. Moist buccal mucosa. NECK: Supple without lymphadenopathy. CHEST: Unlabored respirations. Equal bilateral excursions. CARDIOVASCULAR: Regular rate and rhythm. Distal 2+ pulses. ABDOMEN: Soft, nondistended. Tender along the umbilics. Protuberant. MUSCULOSKELETAL: No clubbing, cyanosis, or edema. ASSESSMENT: 1. Umbilical ventral hernia. PLAN: 1. Recommend proceeding with robotic ventral hernia repair with mesh. 2. Benefits and risks of surgical intervention was discussed including possibility of open technique. 3. DVT prophylaxis. 4. Antibiotic prophylaxis. Past Medical History Past Medical History: No Reported History Additional Past Medical History / Comment(s): varicose veins, hx kidney stones, hx of chest pain in age 22's -had heart cath that was clear and found to be from stress/anxiety, has sinus symptoms History of Any Multi-Drug Resistant Organisms: None Reported Past Surgical History: Section, Cholecystectomy, Heart Catheterization Additional Past Surgical History / Comment(s): lithotripsy, Past Anesthesia/Blood Transfusion Reactions: No Reported Reaction Past Psychological History: No Psychological Hx Reported Smoking Status: Never smoker - Past Family History Mother Family Medical History: Cancer Medications and Allergies Home Medications Medication Instructions Recorded Confirmed Type Amoxicillin 500 mg PO Q8H 5 Days #15 capsule 03/21/18 03/27/18 Rx Allergies Allergy/AdvReac Type Severity Reaction Status Date / Time No Known Allergies Allergy Verified 03/21/18 21:18 Surgical - Exam Vital Signs Temp Pulse Resp BP Pulse Ox 96.4 F L 77 16 136/66 95 03/27/18 09:24 03/27/18 09:24 03/27/18 09:24 03/27/18 09:24 03/27/18 09:24
[2018-03-27] MEDS ORDERED: LACTATED RINGERS 1,000 ML IV ONE ×2 (09:42→11:00)
[2018-03-27] MEDS ORDERED: MIDAZOLAM 2 MG/2 ML VIAL ONE (10:29)
[2018-03-27] MEDS ORDERED: HYDROmorphone (PF) 1 MG/ML ONE (10:29)
[2018-03-27] MEDS ORDERED: LIDOCAINE 1% INJ 10MG/ML (20 ML MDV) ONE (10:29)
[2018-03-27] MEDS ORDERED: GLYCOPYRROLATE 0.2 MG/ML 2 ML VIAL ONE (10:29)
[2018-03-27] MEDS ORDERED: BUPIVACAIN-EPI 0.25%-1:200,000 30 ML VIAL SQ ONE (10:29)
[2018-03-27] MEDS ORDERED: NEOSTIGMINE 1 MG/ML 10 ML VIAL ONE (10:29)
[2018-03-27] MEDS ORDERED: KETOROLAC 30 MG/ML 1 ML VIAL ONE (10:29)
[2018-03-27] MEDS ORDERED: fentaNYL (PF) 50 MCG/ML 2 ML AMP ONE (10:29)
[2018-03-27] MEDS ORDERED: PROPOFOL 10 MG/ML 20 ML VIAL IV ONE (10:29)
[2018-03-27] MEDS ORDERED: SUCCINYLCHOLINE CHLORIDE 100 MG/5 ML SYR IV ONE (10:29)
[2018-03-27] MEDS ORDERED: ROCURONIUM BROMIDE 10 MG/ML 10 ML VIAL IV ONE (10:29)
[2018-03-27] MEDS ORDERED: ceFAZolin IN SWFI 2 GM/20 ML SYRINGE IVP ONE (10:40)
--- NOTE | 2018-03-27 12:22 | P.OP ---
Date of Procedure: 03/27/18 Description of Procedure: SURGEON: ELI DINH MD MARINE PROPULSION TECHNICIAN: 1. SHANTELL BRYANT PREOPERATIVE DIAGNOSES: 1. Initial umbilical hernia with incarceration 2. Morbid obesity does due to excess calories, BMI 53.9 POSTOPERATIVE DIAGNOSES: 1. Initial umbilical hernia with incarceration, 3-cm 2. Morbid obesity does due to excess calories, BMI 53.9 OPERATION: 1. Robotic-assisted da [place] Xi laparoscopic repair of initial incarcerated ventral hernia 3-cm with mesh, ventralight ST mesh 11.4 cm ANESTHESIA: General with local ESTIMATED BLOOD LOSS: 5 mL. SPECIMENS: None COMPLICATIONS: None. INDICATIONS: The patient is a 37-year-old female who presents ventral hernia of the umbilicus. Surgical intervention with laparoscopic versus robotic and open techniques were reviewed. Placement of mesh was also reviewed. Benefits and risks were thoroughly described. Informed consent was obtained. DESCRIPTION OF PROCEDURE: The patient was brought into the operating room and laid in supine position. After general induction, the abdomen had been prepped and draped in standard sterile fashion. Ioban draping was also placed. Prior to incision, a timeout protocol was confirmed with surgical team regarding the patient's name including procedures to be performed. The robot was primed prior to the procedure. A field block using local anesthetic was placed along hernia site including the proposed port sites. Initial incision was made with an #11 blade along the left upper quadrant. A 0 degree 5 mm laparoscopic trocar entry was performed and insufflated. An 8 mm port was placed along the right upper quadrant and another at the epigastrium under direct localization. The 5- mm port was exchanged for an 12 mm robotic port. Placements of the ports were 15 cm from the target anatomy and 10 cm apart. The da [place] Xi robot was previously primed, prepped and draped then docked along the right side of the patient. I then sat at the robot Da [place] Xi console where working arms of the robot including Bovie cautery connected to robotic scissors, vessel sealer, needle dedicated intermodal truck driver, and graspers placed by the registrar assistant. Fascial defect of 3 cm of the umbilicus was identified after cleaning the peritoneal fat of the abdominal wall and reducing an incarcerated omentum. A 12 mm port was placed along the left upper quadrant for placement of the mesh and for sutures. The incarcerated contents was reduced as the peritoneal fat was cleaned from the abdominal wall. Next, hemostasis was checked with cautery. The hernia defect was oversewn using #1 Stratafix with fascial imbrication x 3. Next, ventralight ST mesh 11.4 cm was placed with the rough side towards the abdominal wall. 2-0 VLOC 9 inch sutures were used to fixate the mesh. A final endoscopic imaging was obtained. All instruments and pneumoperitoneum were evacuated from the abdominal cavity. The da [place] Xi robot was undocked from the patient. I re-scrubbed into the case for closure of incisions. The fascia of the 12-mm port was probed and less than 8-mm in size. The incisions were reapproximated using 4-0 Monocryl in an interrupted subcuticular fashion. Liquid glue was applied to the skin after cleansing the skin with normal saline and dilute hydrogen peroxide. An abdominal binder was placed. An umbilical dressing was placed prior. At the end of the procedure, needle, sponge, and instrument count had been verified correct by surgical garment inspector. The patient was taken to the postanesthesia care unit in stable condition. FINDINGS: 1. Initial incarcerated umbilical 3-cm hernia Plan - Discharge Summary New Discharge Prescriptions: New HYDROcodone/APAP 5-325MG [[place] 5-325] 1 tab PO Q4HR PRN 3 Days #18 tab PRN Reason: Pain Ibuprofen [Motrin] 600 mg PO Q8HR PRN #30 tab PRN Reason: Pain No Action Amoxicillin 500 mg PO Q8H 5 Days #15 capsule Discharge Medication List Amoxicillin 500 mg PO Q8H 5 Days #15 capsule 03/21/18 [Rx] HYDROcodone/APAP 5-325MG [[place] 5-325] 1 tab PO Q4HR PRN 3 Days #18 tab [Rx] Ibuprofen [Motrin] 600 mg PO Q8HR PRN #30 tab 03/27/18 [Rx] Follow up Appointment(s)/Referral(s): Eli Dihn MD [STAFF PHYSICIAN] - 04/02/18 Patient Instructions/Handouts: Abdominal Binder (DC), Ventral Hernia (IP), Ventral Hernia Repair (DC) Activity/Diet/Wound Care/Special Instructions: DO NOT REMOVE DRESSING UNTIL SEEN BY SURGEON 04/02/2018. May shower. No bath tub soaks. Wear abdominal binder at all times except showering Discharge Disposition: HOME SELF-CARE
[2018-03-27 12:27] VITALS: TEMP 97.2
[2018-03-27 12:49] VITALS: RESP 16
[2018-03-27] MEDS ORDERED: HYDROcodone/APAP 5-325MG 1 EACH TAB PO ONE (13:29)
[2018-03-27 14:38] VITALS: BP 105/69; PULSE 64
== END 2018-03-27 15:17 | disposition home or self-care (01) ==
LOC: OR 08:46
PROVIDERS: ATTEND Surgery Plastic and Reconstructive Surgery
DX: K42.0 Umbilical hernia with obstruction, without gangrene (principal); E66.01 Morbid (severe) obesity due to excess calories; Z68.43 Body mass index [BMI] 50.0-59.9, adult; I83.90 Asymptomatic varicose veins of unspecified lower extremity; Z87.442 Personal history of urinary calculi
CPT/HCPCS: 49653; S2900; 81025; 88302

== ENCOUNTER 2020-07-13 14:54 | Emergency (ER) | payer MEDICAID ==
[2020-07-13 15:44] VITALS: TEMP 98
--- NOTE | 2020-07-13 15:45 | ED ---
General Adult HPI - General Stated complaint: SOB, cough Time Seen by Provider: 07/13/20 15:40 Source: patient, RN notes reviewed Mode of arrival: ambulatory Limitations: no limitations - History of Present Illness Initial comments: 40-year-old female presents emergency Department chief complaint shortness breath, abdominal discomfort, nausea and diarrhea. Patient states that she may have been exposed to covid. Patient states she is extremely tired, fatigued. Patient states that is nonproductive cough. No history of lung disease. - Related Data Previous Rx's Medication Instructions Recorded Amoxicillin 500 mg PO Q8H 5 Days #15 capsule 03/21/18 HYDROcodone/APAP 5-325MG [[place] 1 tab PO Q4HR PRN 3 Days #18 tab 03/27/18 5-325] Ibuprofen [Motrin] 600 mg PO Q8HR PRN #30 tab 03/27/18 Allergies Allergy/AdvReac Type Severity Reaction Status Date / Time No Known Allergies Allergy Verified 03/21/18 21:18 Review of Systems ROS Statement: Those systems with pertinent positive or pertinent negative responses have been documented in the HPI. ROS Other: All systems not noted in ROS Statement are negative. Past Medical History Past Medical History: No Reported History Additional Past Medical History / Comment(s): varicose veins, hx kidney stones, hx of chest pain in age 20's -had heart cath that was clear and found to be from stress/anxiety, has sinus symptoms History of Any Multi-Drug Resistant Organisms: None Reported Past Surgical History: Section, Cholecystectomy, Heart Catheterization Additional Past Surgical History / Comment(s): lithotripsy, Past Anesthesia/Blood Transfusion Reactions: No Reported Reaction Past Psychological History: No Psychological Hx Reported - Past Family History Mother Family Medical History: Cancer General Exam General appearance: alert, in no apparent distress Head exam: Present: atraumatic, normocephalic, normal inspection Eye exam: Present: normal appearance, PERRL, EOMI. Absent: scleral icterus, conjunctival injection, periorbital swelling ENT exam: Present: normal exam, normal oropharynx, mucous membranes moist Neck exam: Present: normal inspection, full ROM. Absent: tenderness, meningismus, lymphadenopathy Respiratory exam: Present: normal lung sounds bilaterally. Absent: respiratory distress, wheezes, rales, rhonchi, stridor Cardiovascular Exam: Present: regular rate, normal rhythm, normal heart sounds. Absent: systolic murmur, diastolic murmur, rubs, gallop, clicks Neurological exam: Present: alert Skin exam: Present: warm, dry, intact, normal color. Absent: rash Course Vital Signs 07/13/20 15:42 Temperature 98 F Pulse Rate 96 Respiratory 18 Rate Blood Pressure 132/87 O2 Sat by Pulse 93 L Oximetry Medical Decision Making - Medical Decision Making 40-year-old female presented for cough congestion. Patient is positive for Cov id. Patient will receive monoclonal antibodies. Patient discharged in stable condition. - Lab Data Lab Results 07/13/20 Range/Units 15:44 Coronavirus (PCR) Detected A (Not Detectd) Disposition Clinical Impression: COVID-19 Disposition: HOME SELF-CARE Condition: Stable Instructions (If sedation given, give patient instructions): Coronavirus Disease 2019 (COVID-19) Additional Instructions: Please return to the Emergency Department if symptoms worsen or any other concerns. Is patient prescribed a controlled substance at d/c from ED?: No Referrals: Sanam Gray MD [Primary Care Provider] - 1-2 days Time of Disposition: 16:49
--- NOTE | 2020-07-13 16:12 | XR ---
EXAMINATION TYPE: XR chest 2V DATE OF EXAM: 07/13/2020 COMPARISON: Chest x-ray August 18, 2008. HISTORY: Cough and shortness of breath. TECHNIQUE: Frontal and lateral views of the chest are obtained. FINDINGS: Exam slightly suboptimal secondary to patient's large body habitus There are new faint mult ifocal opacities felt present. Background low lung volumes redemonstrated. The cardiac silhouette siz e is stable and within normal limits. The osseous structures are intact. IMPRESSION: Persistent low lung volumes. New faint bilateral multifocal opacities consistent with co vid-19 infection progression.
[2020-07-13] MEDS ORDERED: SODIUM CHLORIDE 0.9% 50 ML IVPB ONE (17:15)
[2020-07-13] MEDS ORDERED: BAMLANIVIMAB (EUA) 700 MG, ETESEVIMAB (EUA) 1,400 MG in SODIUM CHLORIDE 0.9% 50 ML IVPB ONE (17:20)
[2020-07-13] MEDS ORDERED: diphenhydrAMINE 50 MG/ML 1 ML VIAL IVP STA (17:54)
[2020-07-13] MEDS ORDERED: DEXAMETHASONE SOD PHOSPHATE 10 MG/ML 1 ML VIAL IV STA (18:01)
[2020-07-13 18:59] VITALS: BP 142/87; PULSE 80; RESP 16
== END 2020-07-13 19:09 | disposition home or self-care (01) ==
LOC: EC 14:54
DX: U07.1 COVID-19 (principal); T50.905A Adverse effect of unspecified drugs, medicaments and biological substances, initial encounter
CPT/HCPCS: 87635; 71046; 99285; 96374; 96375 ×2; J1200; J1100; Q0245

== ENCOUNTER 2021-05-18 11:21 | Day surgery (SDC) | payer MEDICAID ==
[2021-05-17 08:44] VITALS: BMI 56.5
--- NOTE | 2021-05-18 07:58 | P.GSHP ---
History of Present Illness H&P Date: 05/18/21 CHIEF COMPLAINT: Back mass HISTORY OF PRESENT ILLNESS: The patient is a 40 year-old female with ruptured cyst of the mid back for over 2 months. She presents today for surgical excision. PAST MEDICAL HISTORY: Please see list. PAST SURGICAL HISTORY: Please see list. MEDICATIONS: Please see list. ALLERGIES: Please see list. SOCIAL HISTORY: Please see list. FAMILY HISTORY: No reports of Crohn disease or ulcerative colitis. REVIEW OF ORGAN SYSTEMS: CONSTITUTIONAL: No reports of fevers or chills. GI: Denies any blood in stools or constipation. PHYSICAL EXAM: VITAL SIGNS: Stable Musculoskeletal: No clubbing cyanosis or edema SKIN: Mid back lesion 5 cm GENERAL: Well developed and in no acute distress. Pleasant. HEENT: No sclera icterus. Extraocular movements grossly intact. Moist buccal mucosa. Head is atraumatic, normocephalic. Hears conversational speech. No nasal drainage. NECK: Supple without lymphadenopathy. No JV distention. CHEST: Non-labored respirations and equal bilateral excursions. CARDIOVASCULAR: Regular rate and rhythm. Palpable 2+ radial pulses. ABDOMEN: Soft. Non-tender. Nondistended. NEUROLOGIC: No focal or lateralizing signs. PSYCH: Appropriate affect. Alert and oriented to person, place and time. ASSESSMENT: 1. Mid back mass, 5-cm PLAN: 1. Will proceed of excision of subcutaneous tumor along the back. 2. DVT prophylaxis. 3. Antibiotic prophylaxis. 4. Time of recovery, at least one week. Past Medical History Past Medical History: No Reported History Additional Past Medical History / Comment(s): Varicose veins, hx kidney stones, hx chest pain in 20's - heart cath clear, found to be R/T stress/anxiety. Pos Covid 06/2020. Epidermal cyst back. History of Any Multi-Drug Resistant Organisms: None Reported Past Surgical History: Section, Cholecystectomy, Heart Catheterization, Hernia Repair Additional Past Surgical History / Comment(s): Lithotripsy. Robotic hernia repair Past Anesthesia/Blood Transfusion Reactions: No Reported Reaction Smoking Status: Never smoker - Past Family History Mother Family Medical History: Cancer Medications and Allergies Home Medications Medication Instructions Recorded Confirmed Type Ibuprofen [Motrin Ib] 400 mg PO Q8H 05/17/21 05/17/21 History Allergies Allergy/AdvReac Type Severity Reaction Status Date / Time monoclonal antibody infusion AdvReac turned red Uncoded 05/17/21 08:47 and hot
[~2021-05-18 11:21] MED LIST changes: +ACETAMINOPHEN TAB 500 MG TAB PO PRN; +DEXAMETHASONE SOD PHOSPHATE 4 MG/ML 1 ML VIAL IV ONE; +GABAPENTIN 300 MG CAP PO PRN; -HEPARIN SODIUM,PORCINE 5,000 UNIT/ML 1 ML VIAL SQ ONE; +HEPARIN SODIUM,PORCINE/PF 5,000 UNIT/0.5 ML SYRINGE SQ PRN; +HYDROmorphone 0.5 MG/0.5 ML SYRINGE IVP PRN; +LACTATED RINGERS 1,000 ML IV SCH; +LIDOCAINE 1% (10MG/ML) FOR IV START INTRADERMA PRN; +MELOXICAM 7.5 MG TAB PO PRN; +MIDAZOLAM 2 MG/2 ML VIAL IV PRN; +ONDANSETRON 4 MG/2 ML VIAL IVP ONE; +Pre Op ABX Message 1 EACH MISC MISCELLANE ONE; +ceFAZolin 3 GM in SODIUM CHLORIDE 0.9% 100 ML IVPB PRN
[2021-05-18] MEDS ORDERED: MIDAZOLAM 2 MG/2 ML VIAL ONE (12:39)
[2021-05-18] MEDS ORDERED: fentaNYL (PF) 50 MCG/ML 2 ML AMP ONE (12:39)
[2021-05-18] MEDS ORDERED: LIDOCAINE 1% INJ 10MG/ML (20 ML MDV) ONE (12:39)
[2021-05-18] MEDS ORDERED: SUCCINYLCHOLINE CHLORIDE VIAL 200 MG/10 ML VIAL IV ONE (12:39)
[2021-05-18] MEDS ORDERED: BUPIVACAIN-EPI 0.25%-1:200,000 30 ML VIAL SQ ONE (12:39)
[2021-05-18] MEDS ORDERED: PROPOFOL 10 MG/ML 20 ML VIAL IV ONE (12:39)
[2021-05-18 13:50] VITALS: TEMP 97.7
--- NOTE | 2021-05-18 13:59 | P.OP ---
Date of Procedure: 05/18/21 Description of Procedure: SURGEON: ELI DINH MD ORNAMENTAL PAINTER: None. PREOPERATIVE DIAGNOSES: 1. Upper mid back tumor 2. Morbid obesity due to excess calories, BMI 63.6 POSTOPERATIVE DIAGNOSES: 1. Upper mid back tumor 2. Morbid obesity due to excess calories, BMI 63.6 PROCEDURES PERFORMED: 1. Excision of deep subcutaneous upper mid back mass, 7 x 3 cm 2. Intermediate closure upper mid back incision, 9-cm Anesthesia: GETA, local Estimated Blood Loss (ml): 5 Pathology: other (back mass) Condition: stable Disposition: same day COMPLICATIONS: None. Operative Findings: 1. Excision of deep subcutaneous upper mid back mass 7 x 3 cm intermediate closure INDICATIONS: The patient is a 40-year-old female who presents with symptomatic tumor of the upper mid back. Benefits and risks of surgical intervention were described including bleeding, infection, seroma, pain and recurrence. Informed consent was obtained. DESCRIPTION OR PROCEDURE: In the preoperative area, the area of concern was marked with indelible marker. Patient was brought into the operating room. After general induction, she was positioned in left lateral decubitus position. The back was prepped and draped in a standard sterile fashion with ChloraPrep. Timeout protocol was confirmed with the surgical team regarding the patient's name, procedure to be performed including preoperative medications. DVT prophylaxis was confirmed. A field block was placed of the upper mid back. An ellipticaltransverse in cision using #15 blade was made along the marking into the dermis and subcutaneous tissue. Electro-Bovie cautery was used to enter deep into the subcutaneous tissue of 7 x 3 cm. 0 Vicryl for the deep subcutaneous tissue followed by 3-0 Monocryl in a running subcuticular fashion was placed along the dermis. The skin was cleansed and Exofin tape with liquid was applied for a intermediate third layer closure. The incision was covered with Optifoam dressing. At the end of the procedure, needle, sponge, and instrument count was verified correct by rn neurosurgical. The patient tolerated the procedure well. Plan - Discharge Summary Discharge Rx Participant: Yes New Discharge Prescriptions: New Acetaminophen Tab [Tylenol Tab] 1,000 mg PO Q6HR PRN #30 tablet PRN Reason: Pain Ibuprofen [Motrin] 600 mg PO Q8HR PRN #30 tab PRN Reason: Pain Discontinued Ibuprofen [Motrin Ib] 400 mg PO Q8H Discharge Medication List Acetaminophen Tab [Tylenol Tab] 1,000 mg PO Q6HR PRN #30 tablet 05/18/21 [Rx] Ibuprofen [Motrin] 600 mg PO Q8HR PRN #30 tab 05/18/21 [Rx] Follow up Appointment(s)/Referral(s): Eli Dinh MD [STAFF PHYSICIAN] - 05/23/21 (FOR DRESSING ASSESSMENT) Patient Instructions/Handouts: Excision of Skin Lesion (DC) Activity/Diet/Wound Care/Special Instructions: NO WIDE MOTIONS OF THE SHOULDERS/ARMS FOR 1 WEEK, May 25. NO BENDING AT THE HIPS WHILE SITTING NO EXTREME STRETCHING OF THE BACK See instructions on dressing. DO NOT REMOVE DRESSING. No lifting over 10 pounds in 2 weeks, June 01July shower. No bath tub soaks for two weeks, June 01 Diet as tolerated. Discharge Disposition: HOME SELF-CARE
[2021-05-18 14:28] VITALS: RESP 20
[2021-05-18 14:42] VITALS: BP 136/82; PULSE 75
== END 2021-05-18 15:00 | disposition home or self-care (01) ==
LOC: OR 11:21
PROVIDERS: ATTEND Surgery Plastic and Reconstructive Surgery
DX: L72.0 Epidermal cyst (principal); L90.5 Scar conditions and fibrosis of skin; E66.01 Morbid (severe) obesity due to excess calories; Z68.44 Body mass index [BMI] 60.0-69.9, adult
CPT/HCPCS: 81025; 88304; 11406; J2250; J0330; J1100; J0690; J2405; J2001; J3010; J2704; J1170; J1644

== ENCOUNTER → 2021-08-24 | Outpatient (CLI) | payer MEDICAID ==
[2021-08-24 23:01] LABS: HCT 38.9 % (37.2-46.3); HGB 11.5 g/dL (12.0-15.0); MCH 24.8 pg (27.0-32.0); MCHC 29.6 g/dL (32.0-37.0); NRBC Per 100 WBC 0 /100 WBCS (0.0-0.0); Platelet Count 277 X 10*3/uL (140-440); RBC 4.63 X 10*6/uL (4.10-5.20); RDW 15.9 % (11.5-14.5); WBC 6.37 X 10*3/uL (4.50-10.00)
[2021-08-25 01:51] LABS: ALT 33 U/L (8-44); AST 29 U/L (13-35); African American GFR (CKD) 133.1 (60.0-200.0); Albumin/Globulin Ratio 1.43 (1.60-3.17); Alkaline Phosphatase 92 U/L (41-126); BUN/Creat Ratio 20.83 Ratio (12.00-20.00); Blood Urea Nitrogen 12.5 mg/dL (9.0-27.0); Calcium 8.8 mg/dL (8.7-10.3); Carbon Dioxide 24.4 mmol/L (20.0-27.5); Chloride 104 mmol/L (96-109); Chol/HDL Ratio 4.07 Ratio; Globulin 2.8 g/dL (1.6-3.3); Glucose 87 mg/dL (70-110); LDL Cholesterol,Calculated 74.6 mg/dL (0.0-131.0); Non-African American GFR(CKD) 114.8 (60.0-200.0); Potassium 4.1 mmol/L (3.5-5.5); Sodium 139 mmol/L (135-145); Total Protein 6.8 g/dL (6.2-8.2)
== END | disposition home or self-care (01) ==
LOC: LABWHC1 07:37
PROVIDERS: ATTEND Physician Assistant Medical
DX: R53.83 Other fatigue (principal); Z86.32 Personal history of gestational diabetes
CPT/HCPCS: 36415; 80053; 80061; 83036; 84443; 85027

== ENCOUNTER → 2022-07-13 | Outpatient (CLI) | payer MEDICAID ==
--- NOTE | 2022-07-13 17:16 | CT ---
EXAMINATION TYPE: CT pelvis w con CT DLP: 2858.6 mGycm, Automated exposure control for dose reduction was used. DATE OF EXAM: 07/13/2022 5:10 PM COMPARISON: CT abdomen pelvis most recent from 01/20/2018 CLINICAL INDICATION:Female, 42 years old with history of K46.9 Hernia Repair; RLQ pain TECHNIQUE: Axial CT of the abdomen and pelvis. Sagittal and coronal reformats were created on a [employer] workstation. Contrast used:100 mL of Isovue 300 with IV Contrast, Oral contrast used: with Oral Contrast FINDINGS: Poor mbquwz-pf-ecqra ratio limits evaluation. BLADDER: Unremarkable REPRODUCTIVE: Unremarkable. ABDOMEN & PELVIS STOMACH AND BOWEL: No evidence of bowel obstruction. The appendix is not definitively visualized. The re is no secondary signs of acute appendicitis. PERITONEUM/RETROPERITONEUM: No evidence of pneumoperitoneum or free fluid. VASCULATURE: No evidence of aortic aneurysm. MUSCULOSKELETAL: No acute osseous abnormalities LYMPH NODES: No gross evidence for lymphadenopathy. SOFT TISSUE/ABDOMINAL WALL: Fat-containing umbilical hernia. No evidence of inguinal hernia. IMPRESSION: 1. Limited evaluation secondary to poor cncnoo-dm-bcail ratio. No obvious acute abdominal process. 2. No evidence for inguinal hernia. There is a fat-containing umbilical hernia. 3. Colonic diverticulosis.
--- NOTE | 2022-07-16 08:14 | MM ---
Reason for Exam: Screening (asymptomatic). Baseline mammogram. Patient History: Menarche at age 16. First Full-Term at age 25. Last menstrual period: 06/29/2022 Risk Values: Kay 5 year model risk: 0.5%. NCI Lifetime model risk: 8.3%. Prior Study Comparison: Patient's first Mammogram. Tissue Density: The breast tissue is almost entirely fat. Findings: Analyzed By CAD. There is no suspicious group of microcalcifications or new suspicious mass in either breast. Overall Assessment: Negative, BI-RAD 1 Management: Screening Mammogram of both breasts in 1 year. A clinical breast exam by your physician is recommended on an annual basis and results should be correlated with mammographic findings. Electronically signed and approved by: Ian Braxton M.D. Radiologis
== END | disposition home or self-care (01) ==
LOC: RADMAMWWP 14:45
PROVIDERS: ATTEND Family Medicine
DX: Z12.31 Encounter for screening mammogram for malignant neoplasm of breast (principal); K46.9 Unspecified abdominal hernia without obstruction or gangrene; K57.30 Diverticulosis of large intestine without perforation or abscess without bleeding; K42.9 Umbilical hernia without obstruction or gangrene
CPT/HCPCS: 77067; 77063; 72193; Q9967

== ENCOUNTER 2022-09-04 11:14 | Emergency (ER) | payer MEDICAID ==
[2022-09-04 11:36] VITALS: PULSE 85
--- NOTE | 2022-09-04 11:37 | ED ---
General Adult HPI - General Stated complaint: lower back pain Time Seen by Provider: 09/04/22 11:36 Source: patient, RN notes reviewed Mode of arrival: ambulatory Limitations: no limitations - History of Present Illness Initial comments: 42-year-old female presents emergency Department chief complaint low back pain. Patient states that she and her back 18 years ago. Patient states that her back pain is worsening of recent states that she laid on her back which causes worsening symptoms. She denies any bowel complaints and comes retention. Patient states she has pain with any movement. 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 She has no dysuria no fevers or chills. - Related Data Previous Rx's Medication Instructions Recorded Acetaminophen Tab [Tylenol Tab] 1,000 mg PO Q6HR PRN #30 tablet 05/18/21 Ibuprofen [Motrin] 600 mg PO Q8HR PRN #30 tab 05/18/21 Cyclobenzaprine [Flexeril] 10 mg PO TID PRN #15 tab 09/04/22 HYDROcodone/APAP 7.5-325MG [[place] 1 tab PO Q6HR PRN 3 Days #12 tab 09/04/22 7.5-325] predniSONE 50 mg PO DAILY #5 tab 09/04/22 Allergies Allergy/AdvReac Type Severity Reaction Status Date / Time monoclonal antibody infusion AdvReac turned red Uncoded 09/04/22 11:36 and hot Review of Systems ROS Statement: Those systems with pertinent positive or pertinent negative responses have been documented in the HPI. ROS Other: All systems not noted in ROS Statement are negative. Past Medical History Past Medical History: No Reported History Additional Past Medical History / Comment(s): varicose veins, hx kidney stones, hx of chest pain in age 22's -had heart cath that was clear and found to be from stress/anxiety, has sinus symptoms History of Any Multi-Drug Resistant Organisms: None Reported Past Surgical History: Section, Cholecystectomy, Heart Catheterization, Hernia Repair Additional Past Surgical History / Comment(s): lithotripsy, back cyst Past Anesthesia/Blood Transfusion Reactions: No Reported Reaction Past Psychological History: No Psychological Hx Reported Smoking Status: Never smoker Past Alcohol Use History: Occasional Past Drug Use History: None Reported - Past Family History Mother Family Medical History: Cancer General Exam Limitations: no limitations General appearance: alert, in no apparent distress Head exam: Present: atraumatic, normocephalic, normal inspection Eye exam: Present: normal appearance, PERRL, EOMI. Absent: scleral icterus, conjunctival injection, periorbital swelling Neck exam: Present: normal inspection, full ROM. Absent: tenderness, meningismus, lymphadenopathy Respiratory exam: Present: normal lung sounds bilaterally. Absent: respiratory distress, wheezes, rales, rhonchi, stridor Cardiovascular Exam: Present: regular rate, normal rhythm, normal heart sounds. Absent: systolic murmur, diastolic murmur, rubs, gallop, clicks GI/Abdominal exam: Present: soft, normal bowel sounds. Absent: distended, tenderness, guarding, rebound, rigid Extremities exam: Present: normal inspection, full ROM, normal capillary refill. Absent: tenderness, pedal edema, joint swelling, calf tenderness Back exam: Present: tenderness, paraspinal tenderness. Absent: full ROM Neurological exam: Present: alert, reflexes normal. Absent: motor sensory deficit Course Vital Signs 09/04/22 09/04/22 11:34 12:57 Temperature 98.0 F 98 F Pulse Rate 85 85 Respiratory 20 18 Rate Blood Pressure 125/82 127/79 O2 Sat by Pulse 96 97 Oximetry Medical Decision Making - Medical Decision Making Was pt. sent in by a medical professional or institution (, PA, EXPERIENCE PLANNING STRATEGIST, urgent care, hospital, or snf...) When possible be specific @ -No Did you speak to anyone other than the patient for history (EMS, parent, family, police, friend...)? What history was obtained from this source @ -No Did you review nursing and triage notes (agree or disagree)? Why? @ -I reviewed and agree with nursing and triage notes Were old charts reviewed (outside hosp., previous admission, EMS record, old EKG, old radiological studies, urgent care reports/EKG's, snf records)? Report findings @ -No old charts were reviewed Differential Diagnosis (chest pain, altered mental status, abdominal pain women, abdominal pain men, vaginal bleeding, weakness, fever, dyspnea, syncope, headache, dizziness, GI bleed, back pain, seizure, CVA, palpatations, mental health, musculoskeletal)? @ -Differential Back Pain: Strain, zoster, cauda equina syndrome, epidural abscess, vertebral osteomyelitis, discitis, fracture, subluxation, disc herniation, DJD, spinal stenosis, dissection, AAA, pancreatitis, peptic ulcer disease, pyelonephritis, kidney stone, this is not meant to be an all-inclusive list. EKG interpreted by me (3pts min.). @ -None X-rays interpreted by me (1pt min.). @ -X-ray lumbar for review shows mild degenerative changes CT interpreted by me (1pt min.). @ -None done U/S interpreted by me (1pt. min.). @ -None done What testing was considered but not performed or refused? (CT, X-rays, U/S, labs)? Why? @ -None What meds were considered but not given or refused? Why? @ -None Did you discuss the management of the patient with other professionals (professionals i.e. , PA, EXPERIENCE PLANNING STRATEGIST, lab, RT, psych nurse, healthcare social worker, sap bpc architect, teacher, senior escrow officer, upper caser)? Give summary @ -No Was smoking cessation discussed for >3mins.? @ -No Was critical care preformed (if so, how long)? @ -No Were there social determinants of health that impacted care today? How? (Homelessness, low income, unemployed, alcoholism, drug addiction, transp ortation, low edu. Level, literacy, decrease access to med. care, prison, rehab)? @ -No Was there de-escalation of care discussed even if they declined (Discuss DNR or withdrawal of care, Hospice)? DNR status @ -No What co-morbidities impacted this encounter? (DM, HTN, Smoking, COPD, CAD, Cancer, CVA, ARF, Chemo, Hep., AIDS, mental health diagnosis, sleep apnea, morbid obesity)? @ -None Was patient admitted / discharged? Hospital course, mention meds given and route, prescriptions, significant lab abnormalities, going to OR and other pertinent info. @ -Discharge patient has chronic back pain no red flag symptoms, x-rays were negative for acute changes. Patient symptomatically given control. Patient discharged with prednisone return parameters were discussed. Undiagnosed new problem with uncertain prognosis? @ -No Drug Therapy requiring intensive monitoring for toxicity (Heparin, Nitro, Insulin, Cardizem)? @ -No Were any procedures done? @ -No Diagnosis/symptom? @ -Acute low back pain Acute, or Chronic, or Acute on Chronic? @ -Acute on chronic Uncomplicated (without systemic symptoms) or Complicated (systemic symptoms)? @ -Uncomplicated Side effects of treatment? @ -No Exacerbation, Progression, or Severe Exacerbation? @ -No Poses a threat to life or bodily function? How? (Chest pain, [place], AR, pneumonia, PE, COPD, DKA, ARF, appy, cholecystitis, CVA, Diverticulitis, Homicidal, Suicidal, threat to staff... and all critical care pts) @ -No Disposition Clinical Impression: Back pain Disposition: HOME SELF-CARE Condition: Stable Instructions (If sedation given, give patient instructions): Acute Low Back Pain (ED) Additional Instructions: Please return to the Emergency Department if symptoms worsen or any other concerns. Prescriptions: Cyclobenzaprine [Flexeril] 10 mg PO TID PRN #15 tab PRN Reason: Muscle Spasm HYDROcodone/APAP 7.5-325MG [[place] 7.5-325] 1 tab PO Q6HR PRN 3 Days #12 tab PRN Reason: pain predniSONE 50 mg PO DAILY #5 tab Is patient prescribed a controlled substance at d/c from ED?: Yes When asked, does pt state using other controlled substances?: No If prescribed controlled substance>3 days was MAPS reviewed?: Prescribed <3 Days If opioid is for acute pain is fill amount 7 days or less?: Yes If Rx opioid, was Start Talking consent form obtained?: Yes Referrals: Tayler Gayle DO [Primary Care Provider] - 1-2 days Time of Disposition: 12:48
--- NOTE | 2022-09-04 12:17 | XR ---
EXAMINATION TYPE: XR lumbosacral spine min 4V DATE OF EXAM: 09/04/2022 CLINICAL HISTORY: pain COMPARISON: NONE TECHNIQUE: Frontal, lateral, and oblique images of the lumbar spine are obtained. FINDINGS: There are 5 lumbar type vertebral bodies identified. The lumbar spine shows satisfactory alignment without evidence of acute fracture or dislocation. Vertebral body heights are within normal limits. Moderate degenerative disc space narrowing L3-4 through L5-S1. Facet joint arthropathy. Th e overlying soft tissue appears unremarkable. IMPRESSION: No acute fracture or dislocation is seen in the lumbar spine.ICD 10 NO FRACTURE, INITIAL EVALUATION
[2022-09-04] MEDS ORDERED: HYDROcodone/APAP 7.5-325MG 1 EACH TAB PO ONE (12:46)
[2022-09-04] MEDS ORDERED: CYCLOBENZAPRINE 10 MG TAB PO STA (12:46)
[2022-09-04 12:58] VITALS: BP 127/79; RESP 18; TEMP 98
== END 2022-09-04 13:00 | disposition home or self-care (01) ==
LOC: EC 11:14
DX: M54.50 Low back pain, unspecified (principal); Z88.8 Allergy status to other drugs, medicaments and biological substances
CPT/HCPCS: 72110; 99283

== ENCOUNTER 2022-09-11 13:17 | Emergency (ER) | payer MEDICAID ==
[2022-09-11 14:24] VITALS: RESP 20
[2022-09-11] MEDS ORDERED: KETOROLAC 15 MG/ML 1 ML VIAL IM STA (15:02)
[2022-09-11] MEDS ORDERED: LIDOCAINE 5% PATCH TOPICAL SCH (15:15)
--- NOTE | 2022-09-11 15:30 | ED ---
General Adult HPI - General Chief complaint: Back Pain/Injury Stated complaint: Lower Back Pain Time Seen by Provider: 09/11/22 14:27 Source: patient, RN notes reviewed Mode of arrival: ambulatory Limitations: no limitations - History of Present Illness Initial comments: 42-year-old female with no significant past medical history presents the emergency department with chief complaint of low back pain. She reports having chronic problems. She was recently seen here on 09/04 pain where she had imaging which revealed mild degenerative changes. She denies any recent trauma or injury however she did work yesterday at a job that requires her to do some heavy lifting. She denies any fevers, weakness in extremities, saddle parasthesias, loss of bowel or bladder function. - Related Data Previous Rx's Medication Instructions Recorded Acetaminophen Tab [Tylenol Tab] 1,000 mg PO Q6HR PRN #30 tablet 05/18/21 Ibuprofen [Motrin] 600 mg PO Q8HR PRN #30 tab 05/18/21 Cyclobenzaprine [Flexeril] 10 mg PO TID PRN #15 tab 09/04/22 HYDROcodone/APAP 7.5-325MG [[place] 1 tab PO Q6HR PRN 3 Days #12 tab 09/04/22 7.5-325] predniSONE 50 mg PO DAILY #5 tab 09/04/22 Allergies Allergy/AdvReac Type Severity Reaction Status Date / Time monoclonal antibody infusion AdvReac turned red Uncoded 09/04/22 11:36 and hot Review of Systems ROS Statement: Those systems with pertinent positive or pertinent negative responses have been documented in the HPI. ROS Other: All systems not noted in ROS Statement are negative. Past Medical History Past Medical History: No Reported History Additional Past Medical History / Comment(s): varicose veins, hx kidney stones, hx of chest pain in age 20's -had heart cath that was clear and found to be from stress/anxiety, has sinus symptoms History of Any Multi-Drug Resistant Organisms: None Reported Past Surgical History: Section, Cholecystectomy, Heart Catheterization, Hernia Repair Additional Past Surgical History / Comment(s): lithotripsy, back cyst Past Anesthesia/Blood Transfusion Reactions: No Reported Reaction Past Psychological History: No Psychological Hx Reported Smoking Status: Never smoker Past Alcohol Use History: Occasional Past Drug Use History: None Reported - Past Family History Mother Family Medical History: Cancer General Exam - General Exam Comments Initial Comments: General: Alert, in no acute distress Head: atraumatic normocephalic. Eyes PERRL, EOMI intact, mucous membranes moist Respiratory: Lungs clear to auscultation bilaterally Cardiovascular: Heart rate regular rate and rhythm Abdominal: Soft without guarding or rebound Back: No step-off. There is mild left paraspinal muscle tenderness Extremities: Normal inspection with full range of motion and normal capillary refill Neuroogic: alert and oriented 3, CN II-XII intact, able to ambulate with steady gait Skin: warm dry and intact with normal color Limitations: no limitations Course Vital Signs 09/11/22 09/11/22 14:20 17:12 Temperature 98.0 F 97.8 F Pulse Rate 85 77 Respiratory 20 20 Rate Blood Pressure 164/86 124/67 O2 Sat by Pulse 96 98 Oximetry Medical Decision Making - Medical Decision Making Was pt. sent in by a medical professional or institution (, PA, URBAN RENEWAL MANAGER, urgent care, hospital, or penitentiary...) When possible be specific @ -[No] Did you speak to anyone other than the patient for history (EMS, parent, family, police, friend...)? What history was obtained from this source @ -[No] Did you review nursing and triage notes (agree or disagree)? Why? @ -[I reviewed and agree with nursing and triage notes] Were old charts reviewed (outside hosp., previous admission, EMS record, old EKG, old radiological studies, urgent care reports/EKG's, penitentiary records)? Report findings @ -[No old charts were reviewed] Differential Diagnosis (chest pain, altered mental status, abdominal pain women, abdominal pain men, vaginal bleeding, weakness, fever, dyspnea, syncope, headache, dizziness, GI bleed, back pain, seizure, CVA, palpatations, mental health, musculoskeletal)? @ -[not applicable] EKG interpreted by me (3pts min.). @ -[As above] X-rays interpreted by me (1pt min.). @ -[None done] CT interpreted by me (1pt min.). @ -[None done] U/S interpreted by me (1pt. min.). @ -[None done] What testing was considered but not performed or refused? (CT, X-rays, U/S, labs)? Why? @ -X-rays were considered however patient recently had x-rays done 09/04/2022. Patient denies any new injury or trauma and declined x-rays at today's visit What meds were considered but not given or refused? Why? @ -[None] Did you discuss the management of the patient with other professionals (professionals i.e. , PA, URBAN RENEWAL MANAGER, lab, RT, psych nurse, social group worker, gamb cutter, teacher, fire management officer, telephonic case manager)? Give summary @ -[No] Was smoking cessation discussed for >3mins.? @ -[No] Was critical care preformed (if so, how long)? @ -[No] Were there social determinants of health that impacted care today? How? (Homelessness, low income, unemployed, alcoholism, drug addiction, transportation, low edu. Level, literacy, decrease access to med. care, [facility], rehab)? @ -[No] Was there de-escalation of care discussed even if they declined (Discuss DNR or withdrawal of care, Hospice)? DNR status @ -[No] What co-morbidities impacted this encounter? (DM, HTN, Smoking, COPD, CAD, Cancer, CVA, ARF, Chemo, Hep., AIDS, mental health diagnosis, sleep apnea, morbid obesity)? @ -[None] Was patient admitted / discharged? Hospital course, mention meds given and route, prescriptions, significant lab abnormalities, going to OR and other pertinent info. @ -Discharged. This is a pleasant 42-year-old female presents to the emergency department with back pain. patient had a thorough history and Physic al exam performed while in the ED. physical exam is essentially unremarkable. Heart rate regular rate and rhythm, lungs clear to auscultation bilaterally, abdomen soft and non-tender. There are no focal neuro deficits noted on exam. Patient able to ambulate. Patient had lab work and imaging performed within essentially unremarkable. I discussed the results in detail with the patient verbalized understanding and all questions were addressed. Return precautions were discussed at length. She will be discharged home in stable condition. Case discussed with LETICIA Whyte who agrees with plan of care. Undiagnosed new problem with uncertain prognosis? @ -[No] Drug Therapy requiring intensive monitoring for toxicity (Heparin, Nitro, Insulin, Cardizem)? @ -[No] Were any procedures done? @ -[No] Diagnosis/symptom? @ -back pain Acute, or Chronic, or Acute on Chronic? @ -Acute Uncomplicated (without systemic symptoms) or Complicated (systemic symptoms)? @ -Uncomplicated Side effects of treatment? @ -[No] Exacerbation, Progression, or Severe Exacerbation? @ -[No] Poses a threat to life or bodily function? How? (Chest pain, [place], [place], pneumonia, PE, COPD, DKA, ARF, appy, cholecystitis, CVA, Diverticulitis, Homicidal, Suicidal, threat to staff... and all critical care pts) @ -Low likelihood Disposition Clinical Impression: Back pain, Mechanical back pain Disposition: HOME SELF-CARE Condition: Stable Instructions (If sedation given, give patient instructions): Acute Low Back Pain (ED) Additional Instructions: Return to the nearest emergency department if symptoms worsen or persist Is patient prescribed a controlled substance at d/c from ED?: No Referrals: Tayler Gayle DO [Primary Care Provider] - 1-2 days Time of Disposition: 16:58
[2022-09-11] MEDS ORDERED: ACET/COD 300 MG/30 MG STARTER PACK 6 TAB BTL PO STA (16:57)
[2022-09-11 17:18] VITALS: BP 124/67; PULSE 77; TEMP 97.8
== END 2022-09-11 17:18 | disposition home or self-care (01) ==
LOC: EC 13:17
DX: M54.50 Low back pain, unspecified (principal); Z88.8 Allergy status to other drugs, medicaments and biological substances; Z90.49 Acquired absence of other specified parts of digestive tract
CPT/HCPCS: 99283; 96372; J1885

== ENCOUNTER → 2023-01-26 | Outpatient (CLI) | payer MEDICAID ==
[2023-01-26 13:35] LABS: MCH 25.2 pg (27.0-32.0); MCHC 31.6 d/dL (32.0-37.0); MCV 79.8 FL (80.0-97.0); Mean Platelet Volume 10.2 FL (9.5-12.2); NRBC Per 100 WBC 0 X 10*3/uL (0.00-0.01); Platelet Count 311 X 10*3/uL (140-440); RBC 4.76 X 10*6/uL (4.10-5.60); RDW 14.7 % (11.5-14.5); WBC 8.45 X 10*3/uL (4.50-10.00)
[2023-01-26 13:52] LABS: ALT 26 U/L (8-49); AST 25 U/L (13-35); Albumin 3.9 d/dL (3.8-4.9); Alkaline Phosphatase 104 U/L (41-126); BUN/Creat Ratio 15.83 Ratio (12.00-20.00); Blood Urea Nitrogen 9.5 mg/dL (9.0-27.0); Carbon Dioxide 23.6 mmol/L (21.6-31.8); Chloride 105 mmol/L (96-109); Chol/HDL Ratio 3.19 Ratio; Globulin 2.6 d/dL (1.6-3.3); Glucose 96 mg/dL (70-110); LDL Cholesterol,Calculated 68.8 mg/dL (0.0-131.0); Potassium 4.4 mmol/L (3.5-5.5); Sodium 138 mmol/L (135-145); Total Bilirubin 0.3 mg/dL (0.3-1.2); Total Protein 6.5 d/dL (6.2-8.2); VLDL Calculation 18.38 mg/dL (5.00-40.00)
== END | disposition home or self-care (01) ==
LOC: LABWHC1 10:02
PROVIDERS: ATTEND Family Medicine
DX: I10 Essential (primary) hypertension (principal); R53.83 Other fatigue; R73.01 Impaired fasting glucose; Z79.899 Other long term (current) drug therapy
CPT/HCPCS: 36415; 80053; 80061; 83036; 84443; 85027

== ENCOUNTER → 2024-08-17 | Outpatient (CLI) | payer MEDICAID ==
--- NOTE | 2024-08-17 11:52 | MM ---
Reason for Exam: Screening (asymptomatic). Last mammogram was performed 2 year(s) and 1 month(s) ago. Patient History: Menarche at age 16. First Full-Term at age 25. Last menstrual period: 08/16/2024 Risk Values: Kay 5 year model risk: 0.5%. NCI Lifetime model risk: 8.1%. Prior Study Comparison: 07/13/2022 Bilateral MG 3D screening mammo w/cad, [facility]. Tissue Density: There are scattered areas of fibroglandular density. Findings: Analyzed By CAD. Right breast: There is no suspicious group of microcalcifications or new suspicious mass. Left breast: There is no suspicious group of microcalcifications or new suspicious mass. Overall Assessment: Negative, BI-RAD 1 Management: Screening Mammogram of both breasts in [address] [facility] will attempt to contact patient to return for supplemental views and ultrasound if indicated. Patient should continue monthly self-breast exams. A clinical breast exam by your physician is recommended on an annual basis. This exam should not preclude additional follow-up of suspicious palpable abnormalities. Note on Kay scores and lifetime risk: 1. A Kay score greater than 3% is considered moderate risk. If this is the case, consider specialist referral to assess eligibility for a risk reducing agent. 2. If overall lifetime risk for the development of breast cancer is 20% or higher, the patient may qualify for future screening with alternating mammogram and breast MRI. [facility], , 08/17/2024 11:49 AM. Electronically signed and approved by: Rigoberto Dubon DO
== END | disposition home or self-care (01) ==
LOC: RADMAMWWP 11:28
PROVIDERS: ATTEND Family Medicine
DX: Z12.31 Encounter for screening mammogram for malignant neoplasm of breast (principal); R92.323 Mammographic fibroglandular density, bilateral breasts
CPT/HCPCS: 77063; 77067